=== PATIENT | male | born 1955 ===

== ENCOUNTER 2019-07-26 11:16 | Inpatient (IN) ==
[2019-07-26] MEDS ORDERED: SODIUM CHLORIDE 0.9% 1,000 ML IV ONE ×2 (13:44→15:37)
[2019-07-26] MEDS ORDERED: CALCIUM GLUCONATE 1,000 MG/10 ML VIAL IV ONE (13:45)
[2019-07-26] MEDS ORDERED: NOREPINEPHRINE 4 MG/4 ML VIAL IV ONE (13:49)
[2019-07-26] MEDS: NOREPINEPHRINE 8 MG in SODIUM CHLORIDE 0.9% 242 ML IV PRN ×2 (13:55→23:30)
[2019-07-26] MEDS ORDERED: CALCIUM GLUCONATE 2,000 MG in SODIUM CHLORIDE 0.9% 100 ML IV ONE ×3 (14:00→20:35)
[2019-07-26 14:11] LABS: ABG Base Excess -21.1 MMOL/L (-2.5-2.5); ABG HCO3 10.1 MMOL/L (20-26); ABG Oxygen Saturation 97.6 % (95-100); ABG TCO2 14.3 MMOL/L (23-27); Allen Test Positive; Pt O2 Delivery Device Ventilator
[2019-07-26 14:13] LABS: ABG PH 6.931 (7.35-7.45)
[2019-07-26 14:14] LABS: ABG PCO2 70.7 MM HG (35-48)
[2019-07-26] MEDS: DOPamine 800 MG/250 ML PREMIX IV PRN (14:15)
[2019-07-26] MEDS ORDERED: SODIUM BICARBONATE 50 MEQ/50 ML VIAL IV ONE ×5 (14:17→18:32)
[2019-07-26] MEDS ORDERED: OCTREOTIDE 100 MCG/ML SYRINGE IV ONE (14:28)
[2019-07-26] MEDS: OCTREOTIDE 500 MCG in SODIUM CHLORIDE 0.9% 100 ML IV SCH ×2 (14:50→22:22)
[2019-07-26 15:05] LABS: Basophils % 0.1 % (0.0-0.8); Eosinophils % 0.3 % (0.00-10.9); Hematocrit 42.9 VOL% (42.0-52.0); Hemoglobin 13.7 GM/DL (14.0-18.0); Immature Granulocytes % 1.1 %; Immature Granulocytes Absolute 0.08 #; Lymphocytes # 1.5 10*3/uL (1.4-4.0); Lymphocytes % 21.9 % (21.2-54.2); Mean Corpuscular HGB Conc 31.9 GM/DL (32-36); Mean Corpuscular Volume 92.3 FL (87-102); Mean Platelet Volume 11.5 FL (9.6-12.0); Monocytes % 4.8 % (1.7-12.7); NRBC # 0.25 10*3/uL; Neutrophils % 71.8 % (38.7-73.9); Platelet Count 45 T/CUMM (130-400); Red Blood Count 4.65 MC/CUMM (3.8-5.5); Red Cell Distribution Width 14.7 % (9.3-17.3)
[2019-07-26] MEDS ORDERED: methylPREDNISolone SOD SUC 125 MG/2 ML VIAL IV ONE (15:21)
[2019-07-26] MEDS ORDERED: VECURONIUM 10 MG VIAL IV ONE ×2 (15:24→15:25)
[2019-07-26] MEDS ORDERED: PANTOPRAZOLE INJ 80 MG in SODIUM CHLORIDE 0.9% 100 ML IV ONE (15:28)
[2019-07-26 15:30] LABS: Blood Urea Nitrogen 17 MG/DL (7-18); CKMB % 4.4 %; Estimated Glom Filtration Rate 25 ML/MIN; Glucose 280 MG/DL (74-106); Osmolality,Calculated 292.3 MOS/KG (273-304)
[2019-07-26 15:31] LABS: Troponin I 0.276 NG/ML (0.00-0.045)
[2019-07-26 15:35] LABS: Calcium 5.1 MG/DL (8.5-10.1)
[2019-07-26] MEDS ORDERED: INSULIN REGULAR 100 UNIT/ML IV ONE ×2 (15:37→19:41)
[2019-07-26] MEDS ORDERED: ALBUMIN 25% 50 GM in PREMIX 1 EACH IV ONE (15:37)
[2019-07-26] MEDS ORDERED: ALBUMIN 5% 12.5 GM/250 ML VIAL IV ONE (15:38)
[2019-07-26] MEDS ORDERED: INSULIN REGULAR 100 UNIT/ML ONE (15:39)
[2019-07-26] MEDS ORDERED: DEXTROSE 10% 25 GM/250 ML BAG IV ONE (15:42)
[2019-07-26] MEDS: ALBUTEROL 2.5 MG/3 ML NEB RESP TX SCH ×2 (16:08→16:34)
[2019-07-26 16:10] LABS: ABG Base Excess -8.6 MMOL/L (-2.5-2.5); ABG HCO3 22.8 MMOL/L (20-26); ABG Oxygen Saturation 99.5 % (95-100); ABG PO2 430.9 MM HG (80-95); ABG TCO2 25.2 MMOL/L (23-27); Pt O2 Delivery Device Ventilator
[2019-07-26 16:40] LABS: ABG PCO2 77.7 MM HG (35-48); ABG PH 7.085 (7.35-7.45)
[2019-07-26] MEDS: PANTOPRAZOLE INJ 200 MG in SODIUM CHLORIDE 0.9% 250 ML IV SCH (16:45)
[2019-07-26] MEDS: PIPERACILLIN/TAZOBACTAM 3,375 MG in SODIUM CHLORIDE 0.9% 100 ML IV SCH (17:05)
[2019-07-26 17:26] LABS: ABG Base Excess -9.2 MMOL/L (-2.5-2.5); ABG HCO3 17.2 MMOL/L (20-26); ABG Oxygen Saturation 99.3 % (95-100); ABG TCO2 23.2 MMOL/L (23-27); Glucose Heart Surgery 354 MG/DL (74-106); Hematocrit Heart Surgery 42.6 PERCENT (42-52); Hemoglobin Heart Surgery 13.9 G/DL (14.0-18.0); Potassium Heart/CVR 5.8 MMOL/L (3.5-5.1)
[2019-07-26 17:29] LABS: ABG PCO2 88.5 MM HG (35-48); ABG PH 7.057 (7.35-7.45)
[2019-07-26] MEDS ORDERED: SODIUM CHLORIDE 0.9% 1,000 ML IV PRN (18:17)
[2019-07-26 18:23] LABS: Band Neutrophils 7 % (0-10); Burr Cells 2+; Eosinophils 1 % (0-10); Lymphocytes 12 % (20-55); Metamyelocytes 3 %; Nucleated Red Blood Cells 5 (0-5); Segmented Neutrophils 74 % (50-85); Total Cells Counted 100
[2019-07-26 18:24] LABS: Anisocytosis 2+; Hypochromasia Slight; Macrocytosis Slight; Platelet Estimate Decreased; Poikilocytosis 2+; Polychromasia 1+
[2019-07-26] MEDS ORDERED: fentaNYL 100 MCG/2 ML VIAL ONE (18:32)
[2019-07-26] MEDS ORDERED: CALCIUM CHLORIDE 1,000 MG/10 ML VIAL IV ONE (18:32)
[2019-07-26] MEDS ORDERED: SEVOFLURANE 1 UNIT/15 MINUTE INH ONE (18:32)
[2019-07-26] MEDS ORDERED: MIDAZOLAM 2 MG/2 ML VIAL ONE (18:32)
[2019-07-26] MEDS ORDERED: SODIUM CHLORIDE 0.9% 100 ML IV ONE (18:33)
[2019-07-26] MEDS ORDERED: PHENYLEPHRINE 10 MG/1 ML VIAL IV ONE (18:33)
[2019-07-26] MEDS ORDERED: PHENYLEPHRINE 1 MG/10 ML SYRINGE IV ONE (18:33)
[2019-07-26] MEDS ORDERED: ROCURONIUM 100 MG/10 ML VIAL IV ONE (18:33)
[2019-07-26 18:47] LABS: INR 1.7; PT Patient Result 18.7 SECS (9.6-12.2)
[2019-07-26 18:56] LABS: Partial Thromboplastin Time 53.2 SECS (20.8-36.0)
[2019-07-26 19:15] LABS: ABG Base Excess 1.6 MMOL/L (-2.5-2.5); ABG HCO3 25.9 MMOL/L (20-26); ABG Oxygen Saturation 99.8 % (95-100); ABG PCO2 67.8 MM HG (35-48); ABG PH 7.268 (7.35-7.45); ABG TCO2 27.4 MMOL/L (23-27); Glucose Heart Surgery 347 MG/DL (74-106); Hematocrit Heart Surgery 41.6 PERCENT (42-52); Hemoglobin Heart Surgery 13.6 G/DL (14.0-18.0); Potassium Heart/CVR 5.1 MMOL/L (3.5-5.1)
[2019-07-26 19:36] LABS: INR 1.9; PT Patient Result 20.4 SECS (9.6-12.2)
[2019-07-26] MEDS: ALBUTEROL/IPRATROPIUM 3 ML NEB RESP TX SCH ×2 (20:10→23:05)
[2019-07-26] MEDS: SODIUM BICARB INJ 150 MEQ in STERILE WATER INJ 1,000 ML IV SCH (20:19)
[2019-07-26 20:22] LABS: Hepatitis B Core IgM Quant < 0.05 Index; Hepatitis B Surface Ag Quant 0.14 Index; Hepatitis B Surface Ag Result Negative (Negative); Hepatitis C Virus Ab Quant 0.11 Index; Hepatitis C Virus Ab Result Negative (Negative)
[2019-07-26 20:45] LABS: ABG Base Excess -6.5 MMOL/L (-2.5-2.5); ABG HCO3 19.2 MMOL/L (20-26); ABG Oxygen Saturation 99.6 % (95-100); ABG PCO2 63.9 MM HG (35-48); ABG TCO2 21.2 MMOL/L (23-27); Glucose Heart Surgery 288 MG/DL (74-106); Hematocrit Heart Surgery 44.9 PERCENT (42-52); Hemoglobin Heart Surgery 14.6 G/DL (14.0-18.0); Potassium Heart/CVR 4.9 MMOL/L (3.5-5.1)
[2019-07-26 20:46] LABS: ABG PH 7.181 (7.35-7.45)
[2019-07-26 20:50] LABS: Basophils % 0.2 % (0.0-0.8); Eosinophils # 0.8 10*3/uL (0.0-0.87); Eosinophils % 17.3 % (0.00-10.9); Hematocrit 43.9 VOL% (42.0-52.0); Hemoglobin 14.4 GM/DL (14.0-18.0); Immature Granulocytes % 1.9 %; Immature Granulocytes Absolute 0.09 #; Lymphocytes # 0.8 10*3/uL (1.4-4.0); Lymphocytes % 16.7 % (21.2-54.2); Mean Corpuscular HGB Conc 32.8 GM/DL (32-36); Mean Corpuscular Volume 90.9 FL (87-102); Mean Platelet Volume 11.5 FL (9.6-12.0); Monocytes % 4.1 % (1.7-12.7); NRBC # 0.13 10*3/uL; Neutrophils % 59.8 % (38.7-73.9); Platelet Count 54 T/CUMM (130-400); Red Blood Count 4.83 MC/CUMM (3.8-5.5); Red Cell Distribution Width 15.5 % (9.3-17.3); White Blood Count 4.9 T/CUMM (4-12)
[2019-07-26 20:53] LABS: INR 1.5; PT Patient Result 16.7 SECS (9.6-12.2)
[2019-07-26 21:03] LABS: Partial Thromboplastin Time 46.7 SECS (20.8-36.0)
[2019-07-26 21:22] LABS: Bilirubin,Total 7.2 MG/DL (0.2-1.0); Calcium 6.6 MG/DL (8.5-10.1); Osmolality,Calculated 291.1 MOS/KG (273-304); Total Protein 5.3 G/DL (6.4-8.3)
[2019-07-26 21:52] LABS: Band Neutrophils 10 % (0-10); Lymphocytes 12 % (20-55); Metamyelocytes 2 %; Nucleated Red Blood Cells 3 (0-5); Platelet Estimate Decreased; Segmented Neutrophils 75 % (50-85); Total Cells Counted 100
[2019-07-26 21:53] LABS: Anisocytosis Slight
[2019-07-26] MEDS: INSULIN REGULAR 100 UNIT/ML IV SCH ×2 (21:58→23:48)
[2019-07-26 22:01] LABS: Polychromasia Few
[2019-07-26 22:05] LABS: Stomatocytes Few; Target Cells Few
[2019-07-26 22:06] LABS: Hypochromasia Slight
[2019-07-26] MEDS: AZITHROMYCIN INJ 500 MG in SODIUM CHLORIDE 0.9% 250 ML IV SCH (22:22)
[2019-07-26] MEDS: methylPREDNISolone SOD SUC 125 MG/2 ML VIAL IV SCH (23:11)
[2019-07-26 23:39] LABS: ABG Base Excess -0.7 MMOL/L (-2.5-2.5); ABG HCO3 23.9 MMOL/L (20-26); ABG Oxygen Saturation 99.8 % (95-100); ABG PCO2 53.7 MM HG (35-48); ABG PH 7.304 (7.35-7.45); ABG TCO2 23.9 MMOL/L (23-27); Glucose Heart Surgery 254 MG/DL (74-106); Hematocrit Heart Surgery 37.4 PERCENT (42-52); Hemoglobin Heart Surgery 12.1 G/DL (14.0-18.0); Potassium Heart/CVR 4.6 MMOL/L (3.5-5.1)
[2019-07-26 23:42] LABS: Basophils % 0.3 % (0.0-0.8); Eosinophils # 0.6 10*3/uL (0.0-0.87); Eosinophils % 15.3 % (0.00-10.9); Hematocrit 34.6 VOL% (42.0-52.0); Hemoglobin 11.4 GM/DL (14.0-18.0); Immature Granulocytes % 1.5 %; Immature Granulocytes Absolute 0.06 #; Lymphocytes # 0.5 10*3/uL (1.4-4.0); Mean Corpuscular HGB Conc 32.9 GM/DL (32-36); Mean Corpuscular Volume 90.6 FL (87-102); Mean Platelet Volume 10.8 FL (9.6-12.0); NRBC # 0.14 10*3/uL; Neutrophils % 61.9 % (38.7-73.9); Platelet Count 115 T/CUMM (130-400); Red Blood Count 3.82 MC/CUMM (3.8-5.5); Red Cell Distribution Width 15.9 % (9.3-17.3)
[2019-07-26 23:55] LABS: INR 1.5; PT Patient Result 16.4 SECS (9.6-12.2)
[2019-07-27 00:04] LABS: Partial Thromboplastin Time 69.3 SECS (20.8-36.0)
[2019-07-27 00:16] LABS: Albumin 2.4 G/DL (3.4-5.0); Total Protein 4.3 G/DL (6.4-8.3)
[2019-07-27 00:24] LABS: Calcium 5.3 MG/DL (8.5-10.1)
[2019-07-27 00:28] LABS: Band Neutrophils 21 % (0-10); Lymphocytes 5 % (20-55); Metamyelocytes 3 %; Myelocytes 1 %; Nucleated Red Blood Cells 11 (0-5); Segmented Neutrophils 66 % (50-85); Total Cells Counted 100
[2019-07-27 00:29] LABS: Platelet Estimate Adequate; Polychromasia Few; Target Cells Few
[2019-07-27 00:30] LABS: Anisocytosis Slight; Microcytosis Slight; Stomatocytes Slight
[2019-07-27] MEDS ORDERED: CALCIUM GLUCONATE 1,000 MG in SODIUM CHLORIDE 0.9% 100 ML IV ONE (00:42)
[2019-07-27] MEDS: PIPERACILLIN/TAZOBACTAM 3,375 MG in SODIUM CHLORIDE 0.9% 100 ML IV SCH ×4 (00:53→23:59)
[2019-07-27] MEDS: OCTREOTIDE 500 MCG in SODIUM CHLORIDE 0.9% 100 ML IV SCH ×4 (00:54→20:42)
[2019-07-27] MEDS: SODIUM BICARB INJ 150 MEQ in STERILE WATER INJ 1,000 ML IV SCH ×4 (02:20→20:22)
[2019-07-27 02:42] LABS: ABG Base Excess -0.1 MMOL/L (-2.5-2.5); ABG HCO3 24.4 MMOL/L (20-26); ABG Oxygen Saturation 99.8 % (95-100); ABG PH 7.281 (7.35-7.45); ABG TCO2 25.3 MMOL/L (23-27); Glucose Heart Surgery 281 MG/DL (74-106); Hematocrit Heart Surgery 33.7 PERCENT (42-52); Hemoglobin Heart Surgery 10.9 G/DL (14.0-18.0); Potassium Heart/CVR 5.2 MMOL/L (3.5-5.1)
[2019-07-27] MEDS: ALBUTEROL/IPRATROPIUM 3 ML NEB RESP TX SCH ×5 (02:46→20:46)
[2019-07-27] MEDS: DOPamine 800 MG/250 ML PREMIX IV PRN (02:53)
[2019-07-27 02:57] LABS: Hematocrit 31.3 VOL% (42.0-52.0); Hemoglobin 10.3 GM/DL (14.0-18.0); Immature Granulocytes % 1.9 %; Immature Granulocytes Absolute 0.07 #; Lymphocytes # 0.3 10*3/uL (1.4-4.0); Lymphocytes % 8.5 % (21.2-54.2); Mean Corpuscular HGB Conc 32.9 GM/DL (32-36); Mean Platelet Volume 9.9 FL (9.6-12.0); Monocytes % 8.7 % (1.7-12.7); NRBC # 0.12 10*3/uL; Neutrophils % 80.9 % (38.7-73.9); Platelet Count 160 T/CUMM (130-400); Red Blood Count 3.44 MC/CUMM (3.8-5.5); Red Cell Distribution Width 16.3 % (9.3-17.3); White Blood Count 3.8 T/CUMM (4-12)
[2019-07-27 03:04] LABS: INR 1.3; PT Patient Result 14.3 SECS (9.6-12.2); Partial Thromboplastin Time 37.2 SECS (20.8-36.0)
[2019-07-27 03:25] LABS: Alanine Aminotransferase 404 U/L (16-61); Albumin 2.1 G/DL (3.4-5.0); Alkaline Phosphatase 69 U/L (45-117); Aspartate Amino Transferase 2226 U/L (0-37); Blood Urea Nitrogen 17 MG/DL (7-18); Estimated Glom Filtration Rate 20 ML/MIN; Glucose 252 MG/DL (74-106); Osmolality,Calculated 296.8 MOS/KG (273-304); Total Protein 4.2 G/DL (6.4-8.3)
[2019-07-27 03:28] LABS: Band Neutrophils 24 % (0-10); Lymphocytes 15 % (20-55); Metamyelocytes 1 %; Myelocytes 2 %; Nucleated Red Blood Cells 5 (0-5); Segmented Neutrophils 56 % (50-85); Total Cells Counted 100
[2019-07-27 03:29] LABS: Calcium < 5.0 MG/DL (8.5-10.1); Platelet Estimate Normal; Stomatocytes Slight; Target Cells Few
[2019-07-27 03:30] LABS: Microcytosis Slight
[2019-07-27] MEDS ORDERED: CALCIUM GLUCONATE 2,000 MG in SODIUM CHLORIDE 0.9% 100 ML IV ONE ×2 (03:36→22:02)
[2019-07-27] MEDS: methylPREDNISolone SOD SUC 125 MG/2 ML VIAL IV SCH ×4 (03:44→21:28)
[2019-07-27] MEDS: INSULIN REGULAR 100 UNIT/ML IV SCH ×5 (04:22→21:27)
[2019-07-27] MEDS ORDERED: HEPARIN 10,000 UNIT/10 ML VIAL IV SCH (07:00)
[2019-07-27 07:02] LABS: ABG Base Excess -0.7 MMOL/L (-2.5-2.5); ABG HCO3 26.6 MMOL/L (20-26); ABG Oxygen Saturation 99.3 % (95-100); ABG PH 7.279 (7.35-7.45); ABG PO2 360.7 MM HG (80-95); ABG TCO2 28.4 MMOL/L (23-27); Glucose Heart Surgery 289 MG/DL (74-106); Hemoglobin Heart Surgery 9.9 G/DL (14.0-18.0); Potassium Heart/CVR 4.8 MMOL/L (3.5-5.1)
[2019-07-27 07:14] LABS: Basophils % 0.2 % (0.0-0.8); Hematocrit 29.5 VOL% (42.0-52.0); Hemoglobin 9.7 GM/DL (14.0-18.0); Immature Granulocytes % 2.2 %; Immature Granulocytes Absolute 0.09 #; Lymphocytes # 0.3 10*3/uL (1.4-4.0); Lymphocytes % 7.2 % (21.2-54.2); Mean Corpuscular HGB Conc 32.9 GM/DL (32-36); Mean Platelet Volume 10.5 FL (9.6-12.0); Monocytes % 7.9 % (1.7-12.7); NRBC # 0.11 10*3/uL; Neutrophils % 82.5 % (38.7-73.9); Platelet Count 140 T/CUMM (130-400); Red Blood Count 3.24 MC/CUMM (3.8-5.5); Red Cell Distribution Width 16.6 % (9.3-17.3)
[2019-07-27 07:21] LABS: INR 1.3; PT Patient Result 14.1 SECS (9.6-12.2)
[2019-07-27 07:58] LABS: Alanine Aminotransferase 431 U/L (16-61); Albumin 1.7 G/DL (3.4-5.0); Alkaline Phosphatase 55 U/L (45-117); Aspartate Amino Transferase 2892 U/L (0-37); Blood Urea Nitrogen 21 MG/DL (7-18); Estimated Glom Filtration Rate 17 ML/MIN; Glucose 282 MG/DL (74-106); Osmolality,Calculated 293.3 MOS/KG (273-304); Total Protein 3.8 G/DL (6.4-8.3)
[2019-07-27 08:02] LABS: Calcium < 5.0 MG/DL (8.5-10.1)
[2019-07-27] MEDS ORDERED: MAGNESIUM SULF RIDER 2 GM in PREMIX 1 EACH IV ONE (08:07)
[2019-07-27] MEDS: ALBUMIN 25% 25 GM in PREMIX 1 EACH IV SCH ×2 (08:34→21:32)
[2019-07-27 08:53] LABS: ABG Base Excess -1.2 MMOL/L (-2.5-2.5); ABG HCO3 23.4 MMOL/L (20-26); ABG Oxygen Saturation 99.3 % (95-100); ABG PH 7.268 (7.35-7.45); ABG TCO2 24.6 MMOL/L (23-27)
[2019-07-27] MEDS: CALCIUM GLUCONATE 1,000 MG in SODIUM CHLORIDE 0.9% 100 ML IV SCH ×2 (10:13→21:33)
[2019-07-27 10:14] LABS: ABG Base Excess 0.1 MMOL/L (-2.5-2.5); ABG HCO3 24.5 MMOL/L (20-26); ABG Oxygen Saturation 96.6 % (95-100); ABG PCO2 56.7 MM HG (35-48); ABG PH 7.291 (7.35-7.45); ABG TCO2 25.6 MMOL/L (23-27)
[2019-07-27 10:59] LABS: Band Neutrophils 13 % (0-10); Lymphocytes 8 % (20-55); Metamyelocytes 9 %; Myelocytes 5 %; Nucleated Red Blood Cells 1 (0-5); Segmented Neutrophils 58 % (50-85); Total Cells Counted 100
[2019-07-27 11:08] LABS: Platelet Estimate Adequate; Polychromasia Slight; Stomatocytes Few
[2019-07-27] MEDS ORDERED: ALBUMIN 25% 25 GM in PREMIX 1 EACH IV ONE ×2 (12:12→14:00)
[2019-07-27] MEDS: MIDAZOLAM 100 MG in SODIUM CHLORIDE 0.9% 80 ML IV PRN (16:00)
[2019-07-27] MEDS: PANTOPRAZOLE INJ 200 MG in SODIUM CHLORIDE 0.9% 250 ML IV SCH (16:15)
[2019-07-27] MEDS: NOREPINEPHRINE 8 MG in SODIUM CHLORIDE 0.9% 242 ML IV PRN (16:21)
[2019-07-27] MEDS: AZITHROMYCIN INJ 500 MG in SODIUM CHLORIDE 0.9% 250 ML IV SCH (16:30)
[2019-07-27 20:34] LABS: ABG Base Excess 1.2 MMOL/L (-2.5-2.5); ABG HCO3 27.7 MMOL/L (20-26); ABG Oxygen Saturation 96.9 % (95-100); ABG PCO2 56.9 MM HG (35-48); ABG PH 7.306 (7.35-7.45); ABG PO2 94.2 MM HG (80-95); ABG TCO2 29.5 MMOL/L (23-27)
[2019-07-27 20:37] LABS: Basophils % 0.4 % (0.0-0.8); Eosinophils % 0.2 % (0.00-10.9); Hematocrit 20.5 VOL% (42.0-52.0); Hemoglobin 6.6 GM/DL (14.0-18.0); Immature Granulocytes % 0.4 %; Immature Granulocytes Absolute 0.02 #; Lymphocytes # 0.4 10*3/uL (1.4-4.0); Mean Corpuscular HGB Conc 32.2 GM/DL (32-36); Mean Corpuscular Volume 91.9 FL (87-102); Mean Platelet Volume 10.8 FL (9.6-12.0); Monocytes % 5.1 % (1.7-12.7); NRBC # 0.29 10*3/uL; Neutrophils % 84.9 % (38.7-73.9); Platelet Count 64 T/CUMM (130-400); Red Blood Count 2.23 MC/CUMM (3.8-5.5); Red Cell Distribution Width 16.9 % (9.3-17.3); White Blood Count 4.7 T/CUMM (4-12)
[2019-07-27 20:44] LABS: INR 1.5
[2019-07-27] MEDS: BUDESONIDE 0.5 MG/2 ML NEB RESP TX SCH (20:46)
[2019-07-27 21:06] LABS: Band Neutrophils 20 % (0-10); Lymphocytes 13 % (20-55); Metamyelocytes 4 %; Myelocytes 3 %; Nucleated Red Blood Cells 10 (0-5); Segmented Neutrophils 51 % (50-85); Total Cells Counted 100
[2019-07-27 21:10] LABS: Anisocytosis Slight; Burr Cells Few
[2019-07-27 21:11] LABS: Hypochromasia 1+; Platelet Estimate Decreased; Stomatocytes Few; Target Cells Few
[2019-07-27 21:12] LABS: Polychromasia Slight
[2019-07-27 21:25] LABS: Alanine Aminotransferase 530 U/L (16-61); Alkaline Phosphatase 60 U/L (45-117)
[2019-07-27 21:26] LABS: Albumin 2.4 G/DL (3.4-5.0); Blood Urea Nitrogen 20 MG/DL (7-18); Estimated Glom Filtration Rate 19 ML/MIN; Glucose 208 MG/DL (74-106); Osmolality,Calculated 283.7 MOS/KG (273-304)
[2019-07-27] MEDS: MAGNESIUM SULF RIDER 2 GM in PREMIX 1 EACH IV PRN (21:28)
[2019-07-27] MEDS: MINERAL OIL/PETROLATUM OPH OINT 3.5 GM TUBE BOTH EYES SCH (21:28)
[2019-07-27 21:31] LABS: Calcium < 5.0 MG/DL (8.5-10.1)
[2019-07-27 21:37] LABS: Aspartate Amino Transferase 3716 U/L (0-37)
[2019-07-28] MEDS: ALBUTEROL/IPRATROPIUM 3 ML NEB RESP TX SCH ×8 (00:13→20:45)
[2019-07-28] MEDS: NOREPINEPHRINE 8 MG in SODIUM CHLORIDE 0.9% 242 ML IV PRN ×4 (00:14→21:27)
[2019-07-28] MEDS: SODIUM BICARB INJ 150 MEQ in STERILE WATER INJ 1,000 ML IV SCH ×2 (01:39→09:30)
[2019-07-28] MEDS: methylPREDNISolone SOD SUC 125 MG/2 ML VIAL IV SCH ×2 (04:02→09:07)
[2019-07-28] MEDS: INSULIN REGULAR 100 UNIT/ML IV SCH ×4 (04:02→12:13)
[2019-07-28 04:19] LABS: ABG Base Excess 2.3 MMOL/L (-2.5-2.5); ABG HCO3 28.4 MMOL/L (20-26); ABG Oxygen Saturation 97.2 % (95-100); ABG PCO2 52.7 MM HG (35-48); ABG PO2 100.8 MM HG (80-95); ABG TCO2 30.1 MMOL/L (23-27)
[2019-07-28 05:27] LABS: INR 1.5; PT Patient Result 15.8 SECS (9.6-12.2)
[2019-07-28 06:08] LABS: Troponin I 0.849 NG/ML (0.00-0.045)
[2019-07-28 06:27] LABS: Alanine Aminotransferase 526 U/L (16-61); Albumin 2.3 G/DL (3.4-5.0); Alkaline Phosphatase 82 U/L (45-117); Aspartate Amino Transferase 3539 U/L (0-37); Blood Urea Nitrogen 28 MG/DL (7-18); Estimated Glom Filtration Rate 16 ML/MIN; Glucose 320 MG/DL (74-106); Osmolality,Calculated 290.8 MOS/KG (273-304)
[2019-07-28 06:28] LABS: Calcium < 5.0 MG/DL (8.5-10.1)
[2019-07-28] MEDS: OCTREOTIDE 500 MCG in SODIUM CHLORIDE 0.9% 100 ML IV SCH (06:31)
[2019-07-28] MEDS: BUDESONIDE 0.5 MG/2 ML NEB RESP TX SCH ×2 (07:10→20:45)
[2019-07-28 07:36] LABS: Basophils % 0.4 % (0.0-0.8); Hematocrit 24.4 VOL% (42.0-52.0); Hemoglobin 8.1 GM/DL (14.0-18.0); Immature Granulocytes Absolute 0.05 #; Lymphocytes # 0.3 10*3/uL (1.4-4.0); Lymphocytes % 6.5 % (21.2-54.2); Mean Corpuscular HGB Conc 33.2 GM/DL (32-36); Mean Corpuscular Volume 91.4 FL (87-102); Mean Platelet Volume 11.1 FL (9.6-12.0); Monocytes % 6.9 % (1.7-12.7); NRBC # 0.52 10*3/uL; Neutrophils % 85.2 % (38.7-73.9); Red Blood Count 2.67 MC/CUMM (3.8-5.5); Red Cell Distribution Width 15.7 % (9.3-17.3); White Blood Count 5.2 T/CUMM (4-12)
[2019-07-28 07:47] LABS: Platelet Count 39 T/CUMM (130-400)
[2019-07-28] MEDS ORDERED: SODIUM CHLORIDE 0.9% 1,000 ML IV PRN ×2 (08:09→08:12)
[2019-07-28] MEDS ORDERED: PHYTONADIONE 10 MG/1 ML AMP SUBCUT ONE (08:15)
[2019-07-28] MEDS ORDERED: DEXTROSE 5% NACL 0.45% 1,000 ML IV SCH (09:00)
[2019-07-28] MEDS: CALCIUM GLUCONATE 1,000 MG in SODIUM CHLORIDE 0.9% 100 ML IV SCH (09:06)
[2019-07-28] MEDS: PIPERACILLIN/TAZOBACTAM 3,375 MG in SODIUM CHLORIDE 0.9% 100 ML IV SCH ×2 (09:06→16:18)
[2019-07-28] MEDS: ALBUMIN 25% 25 GM in PREMIX 1 EACH IV SCH ×2 (09:08→20:22)
[2019-07-28 09:10] LABS: Band Neutrophils 35 % (0-10); Lymphocytes 15 % (20-55); Metamyelocytes 6 %; Myelocytes 3 %; Segmented Neutrophils 25 % (50-85); Total Cells Counted 100
[2019-07-28 09:11] LABS: Anisocytosis 1+; Basophilic Stippling 1+; Nucleated Red Blood Cells 19 (0-5); Platelet Estimate Decreased; Smudge Cells Few
[2019-07-28 09:12] LABS: Macrocytosis Slight
[2019-07-28] MEDS ORDERED: DIGOXIN 0.5 MG/2 ML AMP IV ONE ×2 (09:36→12:36)
[2019-07-28] MEDS ORDERED: CALCIUM GLUCONATE 2,000 MG in SODIUM CHLORIDE 0.9% 100 ML IV ONE ×2 (11:00→15:00)
[2019-07-28] MEDS: SODIUM CHLORIDE 0.45% 1,000 ML IV SCH ×2 (12:23→18:17)
[2019-07-28] MEDS: CALCIUM GLUCONATE 2,000 MG in SODIUM CHLORIDE 0.9% 100 ML IV SCH ×3 (14:02→22:06)
[2019-07-28] MEDS: INSULIN REGULAR DRIP 100 ML IV PRN ×2 (15:02→20:32)
[2019-07-28] MEDS: PANTOPRAZOLE INJ 200 MG in SODIUM CHLORIDE 0.9% 250 ML IV SCH (15:38)
[2019-07-28] MEDS: INSULIN REGULAR 100 UNIT/ML IV PRN (16:00)
[2019-07-28] MEDS: AZITHROMYCIN INJ 500 MG in SODIUM CHLORIDE 0.9% 250 ML IV SCH (17:30)
[2019-07-28] MEDS ORDERED: AMIODARONE 450 MG/9 ML VIAL IV ONE (17:39)
[2019-07-28] MEDS: AMIODARONE INJ 450 MG in DEXTROSE 5% 241 ML IV SCH (17:44)
[2019-07-28] MEDS: MIDAZOLAM 100 MG in SODIUM CHLORIDE 0.9% 80 ML IV PRN (19:13)
[2019-07-28] MEDS: methylPREDNISolone SOD SUC 40 MG/1 ML VIAL IV SCH (20:22)
[2019-07-28] MEDS: MINERAL OIL/PETROLATUM OPH OINT 3.5 GM TUBE BOTH EYES SCH (20:23)
[2019-07-28 20:32] LABS: Basophils # 0.1 10*3/uL (0.0-0.2); Hematocrit 22.3 VOL% (42.0-52.0); Hemoglobin 7.7 GM/DL (14.0-18.0); Immature Granulocytes % 1.3 %; Immature Granulocytes Absolute 0.08 #; Lymphocytes # 0.5 10*3/uL (1.4-4.0); Lymphocytes % 8.2 % (21.2-54.2); Mean Corpuscular HGB Conc 34.5 GM/DL (32-36); Mean Corpuscular Volume 87.8 FL (87-102); Mean Platelet Volume 10.2 FL (9.6-12.0); Monocytes % 12.8 % (1.7-12.7); NRBC # 1.31 10*3/uL; Neutrophils % 76.7 % (38.7-73.9); Platelet Count 63 T/CUMM (130-400); Red Blood Count 2.54 MC/CUMM (3.8-5.5); Red Cell Distribution Width 15.5 % (9.3-17.3)
[2019-07-28 21:35] LABS: Band Neutrophils 20 % (0-10); Lymphocytes 27 % (20-55); Metamyelocytes 6 %; Myelocytes 3 %; Nucleated Red Blood Cells 29 (0-5); Segmented Neutrophils 36 % (50-85); Total Cells Counted 100
[2019-07-28 21:37] LABS: Basophilic Stippling Slight; Platelet Estimate Decreased; Polychromasia Slight
[2019-07-28 21:38] LABS: Stomatocytes Slight
[2019-07-28 21:39] LABS: Macrocytosis Slight
[2019-07-29] MEDS: ALBUTEROL/IPRATROPIUM 3 ML NEB RESP TX SCH ×6 (00:12→20:33)
[2019-07-29] MEDS: SODIUM CHLORIDE 0.45% 1,000 ML IV SCH ×4 (00:59→21:18)
[2019-07-29] MEDS: PIPERACILLIN/TAZOBACTAM 3,375 MG in SODIUM CHLORIDE 0.9% 100 ML IV SCH ×3 (01:01→16:50)
[2019-07-29] MEDS: CALCIUM GLUCONATE 2,000 MG in SODIUM CHLORIDE 0.9% 100 ML IV SCH ×6 (01:03→21:19)
[2019-07-29] MEDS: NOREPINEPHRINE 8 MG in SODIUM CHLORIDE 0.9% 242 ML IV PRN ×3 (02:24→13:55)
[2019-07-29 05:00] LABS: ABG Base Excess -1.9 MMOL/L (-2.5-2.5); ABG HCO3 22.8 MMOL/L (20-26); ABG Oxygen Saturation 98.3 % (95-100); ABG PH 7.297 (7.35-7.45); ABG TCO2 23.1 MMOL/L (23-27)
[2019-07-29 05:06] LABS: Basophils % 0.1 % (0.0-0.8); Eosinophils # 0.7 10*3/uL (0.0-0.87); Hematocrit 26.9 VOL% (42.0-52.0); Hemoglobin 9.2 GM/DL (14.0-18.0); Immature Granulocytes % 1.2 %; Immature Granulocytes Absolute 0.09 #; Lymphocytes # 0.6 10*3/uL (1.4-4.0); Lymphocytes % 7.7 % (21.2-54.2); Mean Corpuscular HGB Conc 34.2 GM/DL (32-36); Mean Corpuscular Volume 87.6 FL (87-102); Monocytes % 11.2 % (1.7-12.7); NRBC # 1.77 10*3/uL; Neutrophils % 70.8 % (38.7-73.9); Red Blood Count 3.07 MC/CUMM (3.8-5.5); Red Cell Distribution Width 14.9 % (9.3-17.3); White Blood Count 7.7 T/CUMM (4-12)
[2019-07-29 05:09] LABS: Platelet Count 32 T/CUMM (130-400)
[2019-07-29 05:28] LABS: Band Neutrophils 5 % (0-10); Lymphocytes 9 % (20-55); Nucleated Red Blood Cells 19 (0-5); Segmented Neutrophils 76 % (50-85); Total Cells Counted 100
[2019-07-29 05:29] LABS: Hypochromasia 1+; Platelet Estimate Decreased
[2019-07-29 05:30] LABS: Ovalocytes Slight
[2019-07-29] MEDS: INSULIN REGULAR 100 UNIT/ML IV PRN ×3 (05:31→20:30)
[2019-07-29] MEDS: MAGNESIUM SULF RIDER 2 GM in PREMIX 1 EACH IV PRN (05:35)
[2019-07-29 06:32] LABS: Alanine Aminotransferase 359 U/L (16-61); Alkaline Phosphatase 236 U/L (45-117); Aspartate Amino Transferase 2117 U/L (0-37); Calcium < 5.0 MG/DL (8.5-10.1)
[2019-07-29 06:33] LABS: Blood Urea Nitrogen 55 MG/DL (7-18); Estimated Glom Filtration Rate 11 ML/MIN; Glucose 149 MG/DL (74-106); Osmolality,Calculated 283.4 MOS/KG (273-304); Total Protein 3.9 G/DL (6.4-8.3)
[2019-07-29] MEDS ORDERED: LIDOCAINE 1%/EPI INJ 20 ML VIAL ONE (06:42)
[2019-07-29] MEDS: BUDESONIDE 0.5 MG/2 ML NEB RESP TX SCH ×3 (08:35→20:33)
[2019-07-29] MEDS ORDERED: LIDOCAINE 2% 5 ML VIAL ONE (10:01)
[2019-07-29] MEDS ORDERED: CALCIUM CHLORIDE 1,000 MG/10 ML VIAL IV ONE ×2 (10:01→10:05)
[2019-07-29] MEDS ORDERED: fentaNYL 100 MCG/2 ML VIAL ONE (10:02)
[2019-07-29] MEDS ORDERED: SEVOFLURANE 1 UNIT/15 MINUTE INH ONE (10:02)
[2019-07-29] MEDS ORDERED: ALBUMIN 5% 12.5 GM/250 ML VIAL IV ONE (10:02)
[2019-07-29] MEDS ORDERED: MIDAZOLAM 2 MG/2 ML VIAL ONE (10:02)
[2019-07-29] MEDS ORDERED: ETOMIDATE 40 MG/20 ML VIAL IV ONE (10:03)
[2019-07-29] MEDS ORDERED: ePHEDrine 50 MG/ML AMP ONE (10:03)
[2019-07-29] MEDS ORDERED: ROCURONIUM 100 MG/10 ML VIAL IV ONE (10:04)
[2019-07-29] MEDS ORDERED: PHENYLEPHRINE 1 MG/10 ML SYRINGE IV ONE (10:04)
[2019-07-29] MEDS ORDERED: SODIUM CHLORIDE 0.9% 1,000 ML IV ONE (10:04)
[2019-07-29] MEDS ORDERED: PHENYLEPHRINE DRIP 20 MG/250 ML PREMIX IV ONE (10:05)
[2019-07-29] MEDS: AMIODARONE INJ 450 MG in DEXTROSE 5% 241 ML IV SCH (10:16)
[2019-07-29] MEDS: ALBUMIN 25% 25 GM in PREMIX 1 EACH IV SCH ×2 (10:19→21:18)
[2019-07-29] MEDS: methylPREDNISolone SOD SUC 40 MG/1 ML VIAL IV SCH ×2 (10:24→21:18)
[2019-07-29] MEDS: INSULIN REGULAR DRIP 100 ML IV PRN (14:27)
[2019-07-29] MEDS: AZITHROMYCIN INJ 500 MG in SODIUM CHLORIDE 0.9% 250 ML IV SCH (17:50)
[2019-07-29] MEDS: PANTOPRAZOLE INJ 200 MG in SODIUM CHLORIDE 0.9% 250 ML IV SCH (18:00)
[2019-07-29] MEDS: MINERAL OIL/PETROLATUM OPH OINT 3.5 GM TUBE BOTH EYES SCH (21:19)
[2019-07-30] MEDS: ALBUTEROL/IPRATROPIUM 3 ML NEB RESP TX SCH ×7 (00:17→23:18)
[2019-07-30] MEDS: MIDAZOLAM 100 MG in SODIUM CHLORIDE 0.9% 80 ML IV PRN (00:22)
[2019-07-30] MEDS: PIPERACILLIN/TAZOBACTAM 3,375 MG in SODIUM CHLORIDE 0.9% 100 ML IV SCH ×3 (01:37→17:13)
[2019-07-30] MEDS: CALCIUM GLUCONATE 2,000 MG in SODIUM CHLORIDE 0.9% 100 ML IV SCH ×5 (01:38→18:07)
[2019-07-30] MEDS ORDERED: NOREPINEPHRINE 4 MG/4 ML VIAL IV ONE (02:50)
[2019-07-30] MEDS: AMIODARONE INJ 450 MG in DEXTROSE 5% 241 ML IV SCH (03:09)
[2019-07-30 04:51] LABS: ABG Base Excess -2.4 MMOL/L (-2.5-2.5); ABG HCO3 22.4 MMOL/L (20-26); ABG Oxygen Saturation 99.8 % (95-100); ABG PCO2 36.5 MM HG (35-48); ABG PH 7.393 (7.35-7.45); ABG TCO2 21.2 MMOL/L (23-27)
[2019-07-30] MEDS: SODIUM CHLORIDE 0.45% 1,000 ML IV SCH ×2 (04:51→10:02)
[2019-07-30] MEDS: NOREPINEPHRINE 8 MG in SODIUM CHLORIDE 0.9% 242 ML IV PRN (04:52)
[2019-07-30 05:28] LABS: Basophils # 0.1 10*3/uL (0.0-0.2); Basophils % 0.8 % (0.0-0.8); Hematocrit 18.4 VOL% (42.0-52.0); Immature Granulocytes % 3.7 %; Immature Granulocytes Absolute 0.47 #; Lymphocytes % 7.9 % (21.2-54.2); Mean Corpuscular HGB Conc 34.8 GM/DL (32-36); Mean Corpuscular Volume 85.2 FL (87-102); Mean Platelet Volume 10.8 FL (9.6-12.0); Monocytes % 5.8 % (1.7-12.7); NRBC # 2.24 10*3/uL; Neutrophils % 81.8 % (38.7-73.9); Red Blood Count 2.16 MC/CUMM (3.8-5.5); Red Cell Distribution Width 15.3 % (9.3-17.3); White Blood Count 12.9 T/CUMM (4-12)
[2019-07-30 05:30] LABS: Hemoglobin 6.4 GM/DL (14.0-18.0)
[2019-07-30 05:31] LABS: Platelet Count 28 T/CUMM (130-400)
[2019-07-30 05:59] LABS: Band Neutrophils 15 % (0-10); Lymphocytes 13 % (20-55); Nucleated Red Blood Cells 19 (0-5); Segmented Neutrophils 67 % (50-85); Total Cells Counted 100
[2019-07-30 06:00] LABS: Alanine Aminotransferase 218 U/L (16-61); Alkaline Phosphatase 201 U/L (45-117); Aspartate Amino Transferase 1080 U/L (0-37); Blood Urea Nitrogen 58 MG/DL (7-18); Estimated Glom Filtration Rate 11 ML/MIN; Glucose 132 MG/DL (74-106); Hypochromasia 1+; Microcytosis Slight; Osmolality,Calculated 287.1 MOS/KG (273-304); Total Protein 3.8 G/DL (6.4-8.3)
[2019-07-30 06:01] LABS: Platelet Estimate Decreased; Polychromasia Slight
[2019-07-30 06:04] LABS: Calcium < 5.0 MG/DL (8.5-10.1)
[2019-07-30] MEDS: MAGNESIUM SULF RIDER 2 GM in PREMIX 1 EACH IV PRN (06:08)
[2019-07-30] MEDS ORDERED: SODIUM CHLORIDE 0.9% 1,000 ML IV PRN ×4 (07:09→13:38)
[2019-07-30] MEDS: BUDESONIDE 0.5 MG/2 ML NEB RESP TX SCH ×2 (08:04→20:12)
[2019-07-30] MEDS: methylPREDNISolone SOD SUC 40 MG/1 ML VIAL IV SCH ×2 (09:14→20:59)
[2019-07-30] MEDS: LEVOFLOXACIN INJ 500 MG in PREMIX 1 EACH IV SCH (09:28)
[2019-07-30] MEDS: INSULIN LISPRO 100 UNIT/ML SUBCUT SCH ×2 (15:48→20:59)
[2019-07-30] MEDS: PANTOPRAZOLE INJ 200 MG in SODIUM CHLORIDE 0.9% 250 ML IV SCH (18:11)
[2019-07-30] MEDS: MINERAL OIL/PETROLATUM OPH OINT 3.5 GM TUBE BOTH EYES SCH (20:59)
[2019-07-31] MEDS: CALCIUM GLUCONATE 2,000 MG in SODIUM CHLORIDE 0.9% 100 ML IV SCH ×5 (00:27→20:31)
[2019-07-31] MEDS: PIPERACILLIN/TAZOBACTAM 3,375 MG in SODIUM CHLORIDE 0.9% 100 ML IV SCH ×3 (00:27→17:38)
[2019-07-31] MEDS: INSULIN LISPRO 100 UNIT/ML SUBCUT SCH ×8 (00:28→20:31)
[2019-07-31] MEDS: ALBUTEROL/IPRATROPIUM 3 ML NEB RESP TX SCH ×6 (03:12→23:34)
[2019-07-31 04:21] LABS: ABG Base Excess -6.2 MMOL/L (-2.5-2.5); ABG HCO3 19.3 MMOL/L (20-26); ABG Oxygen Saturation 98.9 % (95-100); ABG PCO2 37.4 MM HG (35-48); ABG PH 7.321 (7.35-7.45)
[2019-07-31 04:23] LABS: Basophils # 0.1 10*3/uL (0.0-0.2); Basophils % 0.8 % (0.0-0.8); Hematocrit 24.9 VOL% (42.0-52.0); Hemoglobin 8.6 GM/DL (14.0-18.0); Immature Granulocytes % 5.7 %; Immature Granulocytes Absolute 0.82 #; Lymphocytes # 0.7 10*3/uL (1.4-4.0); Lymphocytes % 4.7 % (21.2-54.2); Mean Corpuscular HGB Conc 34.5 GM/DL (32-36); Mean Corpuscular Volume 86.5 FL (87-102); Mean Platelet Volume 11.7 FL (9.6-12.0); Monocytes % 7.8 % (1.7-12.7); NRBC # 1.45 10*3/uL; Platelet Count 52 T/CUMM (130-400); Red Blood Count 2.88 MC/CUMM (3.8-5.5); Red Cell Distribution Width 15.6 % (9.3-17.3); White Blood Count 14.3 T/CUMM (4-12)
[2019-07-31 04:33] LABS: INR 1.1; PT Patient Result 11.9 SECS (9.6-12.2)
[2019-07-31 04:48] LABS: Alanine Aminotransferase 197 U/L (16-61); Alkaline Phosphatase 201 U/L (45-117); Aspartate Amino Transferase 775 U/L (0-37); Blood Urea Nitrogen 70 MG/DL (7-18); Estimated Glom Filtration Rate 11 ML/MIN; Glucose 311 MG/DL (74-106); Osmolality,Calculated 296.5 MOS/KG (273-304); Total Protein 4.7 G/DL (6.4-8.3)
[2019-07-31 04:49] LABS: Calcium < 5.0 MG/DL (8.5-10.1)
[2019-07-31 04:55] LABS: Band Neutrophils 2 % (0-10); Lymphocytes 6 % (20-55); Microcytosis Slight; Nucleated Red Blood Cells 16 (0-5); Platelet Estimate Decreased; Segmented Neutrophils 85 % (50-85); Total Cells Counted 100
[2019-07-31] MEDS: BUDESONIDE 0.5 MG/2 ML NEB RESP TX SCH ×2 (07:20→20:04)
[2019-07-31] MEDS: methylPREDNISolone SOD SUC 40 MG/1 ML VIAL IV SCH ×2 (08:19→20:32)
[2019-07-31] MEDS ORDERED: DEXTROSE 50% 25 GM/50 ML VIAL IV PRN (08:51)
[2019-07-31] MEDS ORDERED: GLUCAGON 1 MG VIAL IM PRN (08:51)
[2019-07-31] MEDS: fentaNYL INJ 1,250 MCG in SODIUM CHLORIDE 0.9% 225 ML IV PRN (09:13)
[2019-07-31] MEDS ORDERED: INSULIN LISPRO 100 UNIT/ML ONE (09:34)
[2019-07-31] MEDS: INSULIN GLARGINE 100 UNIT/ML SUBCUT SCH (09:37)
[2019-07-31] MEDS ORDERED: INSULIN LISPRO 100 UNIT/ML SUBCUT SCH (10:00)
[2019-07-31] MEDS ORDERED: HEPARIN 5,000 UNIT/1 ML VIAL ONE (11:03)
[2019-07-31] MEDS ORDERED: PHENYLEPHRINE 1 MG/10 ML SYRINGE IV ONE (13:04)
[2019-07-31] MEDS ORDERED: MIDAZOLAM 2 MG/2 ML VIAL ONE (13:04)
[2019-07-31] MEDS ORDERED: PHENYLEPHRINE DRIP 20 MG/250 ML PREMIX IV ONE (13:04)
[2019-07-31] MEDS ORDERED: ROCURONIUM 100 MG/10 ML VIAL IV ONE (13:05)
[2019-07-31] MEDS: PANTOPRAZOLE INJ 200 MG in SODIUM CHLORIDE 0.9% 250 ML IV SCH (20:30)
[2019-07-31] MEDS: MINERAL OIL/PETROLATUM OPH OINT 3.5 GM TUBE BOTH EYES SCH (20:37)
[2019-08-01] MEDS: INSULIN LISPRO 100 UNIT/ML SUBCUT SCH ×6 (00:31→21:15)
[2019-08-01] MEDS: PIPERACILLIN/TAZOBACTAM 3,375 MG in SODIUM CHLORIDE 0.9% 100 ML IV SCH ×3 (00:32→17:34)
[2019-08-01] MEDS: CALCIUM GLUCONATE 2,000 MG in SODIUM CHLORIDE 0.9% 100 ML IV SCH ×4 (02:44→21:14)
[2019-08-01] MEDS: ALBUTEROL/IPRATROPIUM 3 ML NEB RESP TX SCH ×5 (03:11→19:11)
[2019-08-01 04:46] LABS: ABG Base Excess -7.6 MMOL/L (-2.5-2.5); ABG HCO3 18.2 MMOL/L (20-26); ABG Oxygen Saturation 98.8 % (95-100); ABG PCO2 40.9 MM HG (35-48); ABG PH 7.271 (7.35-7.45); ABG TCO2 17.7 MMOL/L (23-27)
[2019-08-01 04:48] LABS: Basophils # 0.1 10*3/uL (0.0-0.2); Basophils % 0.7 % (0.0-0.8); Hematocrit 25.7 VOL% (42.0-52.0); Hemoglobin 8.7 GM/DL (14.0-18.0); Immature Granulocytes % 4.5 %; Immature Granulocytes Absolute 0.71 #; Lymphocytes # 0.6 10*3/uL (1.4-4.0); Lymphocytes % 3.8 % (21.2-54.2); Mean Corpuscular HGB Conc 33.9 GM/DL (32-36); Mean Corpuscular Volume 88.6 FL (87-102); Mean Platelet Volume 11.7 FL (9.6-12.0); Monocytes % 5.4 % (1.7-12.7); NRBC # 1.08 10*3/uL; Neutrophils % 85.6 % (38.7-73.9); Platelet Count 44 T/CUMM (130-400); Red Cell Distribution Width 16.2 % (9.3-17.3); White Blood Count 15.9 T/CUMM (4-12)
[2019-08-01 05:09] LABS: Band Neutrophils 8 % (0-10); Hypochromasia 1+; Lymphocytes 8 % (20-55); Nucleated Red Blood Cells 10 (0-5); Ovalocytes Slight; Platelet Estimate Decreased; Segmented Neutrophils 82 % (50-85); Total Cells Counted 100
[2019-08-01 05:10] LABS: Macrocytosis Slight; Polychromasia Slight
[2019-08-01 05:38] LABS: Alanine Aminotransferase 191 U/L (16-61); Albumin 1.7 G/DL (3.4-5.0); Alkaline Phosphatase 208 U/L (45-117); Aspartate Amino Transferase 609 U/L (0-37); Blood Urea Nitrogen 104 MG/DL (7-18); Estimated Glom Filtration Rate 8 ML/MIN; Glucose 166 MG/DL (74-106); Osmolality,Calculated 309.8 MOS/KG (273-304); Total Protein 4.8 G/DL (6.4-8.3)
[2019-08-01 05:41] LABS: Calcium < 5.0 MG/DL (8.5-10.1)
[2019-08-01 05:58] LABS: INR 1.1; PT Patient Result 11.4 SECS (9.6-12.2)
[2019-08-01] MEDS: BUDESONIDE 0.5 MG/2 ML NEB RESP TX SCH ×2 (07:07→19:11)
[2019-08-01] MEDS: INSULIN GLARGINE 100 UNIT/ML SUBCUT SCH (09:03)
[2019-08-01] MEDS: LEVOFLOXACIN INJ 500 MG in PREMIX 1 EACH IV SCH (09:04)
[2019-08-01] MEDS: methylPREDNISolone SOD SUC 40 MG/1 ML VIAL IV SCH ×2 (09:04→21:14)
[2019-08-01] MEDS: MIDAZOLAM 100 MG in SODIUM CHLORIDE 0.9% 80 ML IV PRN (10:07)
[2019-08-01] MEDS: NOREPINEPHRINE 8 MG in SODIUM CHLORIDE 0.9% 242 ML IV PRN (14:54)
[2019-08-01] MEDS ORDERED: DEXTROSE 10% 1,000 ML IV PRN (17:00)
[2019-08-01] MEDS ORDERED: MULTIVITAMIN INJ 10 ML in DEXTROSE 50% 400 ML, AMINO ACIDS 10% 600 ML IV SCH (17:00)
[2019-08-01] MEDS: fentaNYL INJ 1,250 MCG in SODIUM CHLORIDE 0.9% 225 ML IV PRN (18:10)
[2019-08-01] MEDS: PANTOPRAZOLE 40 MG VIAL IV SCH (21:14)
[2019-08-01] MEDS: MINERAL OIL/PETROLATUM OPH OINT 3.5 GM TUBE BOTH EYES SCH (21:16)
[2019-08-02] MEDS: PIPERACILLIN/TAZOBACTAM 3,375 MG in SODIUM CHLORIDE 0.9% 100 ML IV SCH ×3 (00:45→13:18)
[2019-08-02] MEDS: INSULIN LISPRO 100 UNIT/ML SUBCUT SCH ×6 (00:47→20:34)
[2019-08-02] MEDS: CALCIUM GLUCONATE 2,000 MG in SODIUM CHLORIDE 0.9% 100 ML IV SCH ×4 (01:30→20:16)
[2019-08-02 03:36] LABS: ABG Base Excess -3.9 MMOL/L (-2.5-2.5); ABG HCO3 21.2 MMOL/L (20-26); ABG Oxygen Saturation 99.1 % (95-100); ABG PCO2 39.2 MM HG (35-48); ABG PH 7.346 (7.35-7.45); ABG TCO2 20.1 MMOL/L (23-27)
[2019-08-02 03:57] LABS: Albumin 1.4 G/DL (3.4-5.0); Osmolality,Calculated 305.1 MOS/KG (273-304); Total Protein 4.5 G/DL (6.4-8.3)
[2019-08-02] MEDS: ALBUTEROL/IPRATROPIUM 3 ML NEB RESP TX SCH ×7 (03:57→23:54)
[2019-08-02 04:07] LABS: Calcium 5.7 MG/DL (8.5-10.1)
[2019-08-02 04:12] LABS: Prealbumin 11.5 MG/DL (20-40)
[2019-08-02 04:31] LABS: Basophils % 0.3 % (0.0-0.8); Hemoglobin 7.7 GM/DL (14.0-18.0); Immature Granulocytes % 2.4 %; Immature Granulocytes Absolute 0.31 #; Lymphocytes # 0.5 10*3/uL (1.4-4.0); Lymphocytes % 3.5 % (21.2-54.2); Mean Corpuscular HGB Conc 33.5 GM/DL (32-36); Mean Corpuscular Volume 88.5 FL (87-102); Mean Platelet Volume 12.9 FL (9.6-12.0); Monocytes % 3.7 % (1.7-12.7); NRBC # 0.23 10*3/uL; Neutrophils % 90.1 % (38.7-73.9); Red Cell Distribution Width 16.1 % (9.3-17.3); White Blood Count 12.7 T/CUMM (4-12)
[2019-08-02 04:34] LABS: Platelet Count 55 T/CUMM (130-400)
[2019-08-02 05:14] LABS: Band Neutrophils 2 % (0-10); Lymphocytes 5 % (20-55); Segmented Neutrophils 90 % (50-85); Total Cells Counted 100
[2019-08-02 05:15] LABS: Anisocytosis 1+; Hypochromasia 1+; Platelet Estimate Decreased
[2019-08-02] MEDS: fentaNYL INJ 1,250 MCG in SODIUM CHLORIDE 0.9% 225 ML IV PRN ×2 (06:11→19:16)
[2019-08-02] MEDS ORDERED: SODIUM CHLORIDE 0.9% 1,000 ML IV PRN ×2 (07:06→07:21)
[2019-08-02] MEDS ORDERED: SEVOFLURANE 1 UNIT/15 MINUTE INH ONE (08:36)
[2019-08-02] MEDS ORDERED: MIDAZOLAM 2 MG/2 ML VIAL ONE (08:36)
[2019-08-02] MEDS ORDERED: SODIUM CHLORIDE 0.9% 1,000 ML IV ONE (08:37)
[2019-08-02] MEDS ORDERED: PHENYLEPHRINE 1 MG/10 ML SYRINGE IV ONE (08:37)
[2019-08-02] MEDS ORDERED: ROCURONIUM 100 MG/10 ML VIAL IV ONE (08:37)
[2019-08-02] MEDS: BUDESONIDE 0.5 MG/2 ML NEB RESP TX SCH ×2 (08:40→19:06)
[2019-08-02] MEDS: INSULIN GLARGINE 100 UNIT/ML SUBCUT SCH (09:19)
[2019-08-02] MEDS: methylPREDNISolone SOD SUC 40 MG/1 ML VIAL IV SCH ×2 (09:28→20:26)
[2019-08-02] MEDS: PANTOPRAZOLE 40 MG VIAL IV SCH ×2 (09:34→20:26)
[2019-08-02] MEDS: MIDAZOLAM 100 MG in SODIUM CHLORIDE 0.9% 80 ML IV PRN (10:40)
[2019-08-02] MEDS ORDERED: CALCIUM GLUCONATE 2,000 MG in SODIUM CHLORIDE 0.9% 100 ML IV ONE (13:00)
[2019-08-02] MEDS: MULTIVITAMIN IV SCH (17:06)
[2019-08-02] MEDS: DEXTROSE IV SCH (17:06)
[2019-08-02] MEDS: AMINO ACIDS 10% IV SCH (17:06)
[2019-08-02] MEDS: MINERAL OIL/PETROLATUM OPH OINT 3.5 GM TUBE BOTH EYES SCH (20:29)
[2019-08-03] MEDS: PIPERACILLIN/TAZOBACTAM 3,375 MG in SODIUM CHLORIDE 0.9% 100 ML IV SCH ×2 (00:51→12:35)
[2019-08-03] MEDS: INSULIN LISPRO 100 UNIT/ML SUBCUT SCH ×6 (00:57→20:35)
[2019-08-03] MEDS: CALCIUM GLUCONATE 2,000 MG in SODIUM CHLORIDE 0.9% 100 ML IV SCH ×4 (01:11→20:35)
[2019-08-03] MEDS: ALBUTEROL/IPRATROPIUM 3 ML NEB RESP TX SCH ×6 (03:14→23:05)
[2019-08-03 04:45] LABS: Basophils # 0.1 10*3/uL (0.0-0.2); Basophils % 0.6 % (0.0-0.8); Hematocrit 30.7 VOL% (42.0-52.0); Immature Granulocytes % 2.3 %; Immature Granulocytes Absolute 0.26 #; Lymphocytes # 0.4 10*3/uL (1.4-4.0); Lymphocytes % 3.8 % (21.2-54.2); Mean Corpuscular HGB Conc 33.6 GM/DL (32-36); Mean Corpuscular Volume 91.1 FL (87-102); Mean Platelet Volume 12.3 FL (9.6-12.0); NRBC # 0.14 10*3/uL; Neutrophils % 90.3 % (38.7-73.9); Platelet Count 101 T/CUMM (130-400); Red Blood Count 3.37 MC/CUMM (3.8-5.5); Red Cell Distribution Width 15.6 % (9.3-17.3); White Blood Count 11.2 T/CUMM (4-12)
[2019-08-03 04:47] LABS: Hemoglobin 10.3 GM/DL (14.0-18.0)
[2019-08-03 04:59] LABS: Albumin 1.5 G/DL (3.4-5.0); Calcium 6.5 MG/DL (8.5-10.1)
[2019-08-03 05:58] LABS: ABG Base Excess -5.2 MMOL/L (-2.5-2.5); ABG HCO3 20.1 MMOL/L (20-26); ABG Oxygen Saturation 99.5 % (95-100); ABG PCO2 35.7 MM HG (35-48); ABG TCO2 17.9 MMOL/L (23-27)
[2019-08-03] MEDS: MIDAZOLAM 100 MG in SODIUM CHLORIDE 0.9% 80 ML IV PRN (06:02)
[2019-08-03 06:05] LABS: Band Neutrophils 18 % (0-10); Hypochromasia 2+; Lymphocytes 2 % (20-55); Platelet Estimate Decreased; Segmented Neutrophils 78 % (50-85); Total Cells Counted 100
[2019-08-03] MEDS: BUDESONIDE 0.5 MG/2 ML NEB RESP TX SCH ×2 (06:47→20:11)
[2019-08-03] MEDS: INSULIN GLARGINE 100 UNIT/ML SUBCUT SCH (08:35)
[2019-08-03] MEDS: methylPREDNISolone SOD SUC 40 MG/1 ML VIAL IV SCH ×2 (08:36→20:35)
[2019-08-03] MEDS: PANTOPRAZOLE 40 MG VIAL IV SCH ×2 (08:36→20:34)
[2019-08-03] MEDS: LEVOFLOXACIN INJ 500 MG in PREMIX 1 EACH IV SCH (08:37)
[2019-08-03] MEDS ORDERED: INSULIN GLARGINE 100 UNIT/ML SUBCUT SCH (09:21)
[2019-08-03] MEDS: fentaNYL INJ 1,250 MCG in SODIUM CHLORIDE 0.9% 225 ML IV PRN ×2 (09:25→20:55)
[2019-08-03] MEDS ORDERED: INSULIN GLARGINE 100 UNIT/ML SUBCUT ONE (11:00)
[2019-08-03] MEDS: AMINO ACIDS 10% IV SCH (16:36)
[2019-08-03] MEDS: MULTIVITAMIN IV SCH (16:36)
[2019-08-03] MEDS: DEXTROSE IV SCH (16:36)
[2019-08-03] MEDS: MINERAL OIL/PETROLATUM OPH OINT 3.5 GM TUBE BOTH EYES SCH (20:35)
[2019-08-04] MEDS: INSULIN LISPRO 100 UNIT/ML SUBCUT SCH ×7 (00:15→23:39)
[2019-08-04] MEDS: CALCIUM GLUCONATE 2,000 MG in SODIUM CHLORIDE 0.9% 100 ML IV SCH ×4 (01:34→20:16)
[2019-08-04] MEDS: PIPERACILLIN/TAZOBACTAM 3,375 MG in SODIUM CHLORIDE 0.9% 100 ML IV SCH ×2 (01:34→13:59)
[2019-08-04] MEDS: ALBUTEROL/IPRATROPIUM 3 ML NEB RESP TX SCH ×6 (03:08→23:47)
[2019-08-04 03:30] LABS: ABG Base Excess -9.9 MMOL/L (-2.5-2.5); ABG HCO3 16.5 MMOL/L (20-26); ABG Oxygen Saturation 99.7 % (95-100); ABG PCO2 33.1 MM HG (35-48); ABG PH 7.288 (7.35-7.45); ABG TCO2 14.6 MMOL/L (23-27)
[2019-08-04 03:52] LABS: Basophils # 0.1 10*3/uL (0.0-0.2); Basophils % 0.6 % (0.0-0.8); Eosinophils % 0.1 % (0.00-10.9); Hemoglobin 10.1 GM/DL (14.0-18.0); Immature Granulocytes % 1.8 %; Lymphocytes # 0.4 10*3/uL (1.4-4.0); Lymphocytes % 3.6 % (21.2-54.2); Mean Corpuscular HGB Conc 32.6 GM/DL (32-36); Mean Corpuscular Volume 91.7 FL (87-102); Mean Platelet Volume 12.2 FL (9.6-12.0); Monocytes % 3.1 % (1.7-12.7); NRBC # 0.06 10*3/uL; Neutrophils % 90.8 % (38.7-73.9); Platelet Count 110 T/CUMM (130-400); Red Blood Count 3.38 MC/CUMM (3.8-5.5); Red Cell Distribution Width 15.9 % (9.3-17.3); White Blood Count 11.1 T/CUMM (4-12)
[2019-08-04 04:16] LABS: Band Neutrophils 16 % (0-10); Hypochromasia 1+; Lymphocytes 4 % (20-55); Nucleated Red Blood Cells 1 (0-5); Ovalocytes Slight; Platelet Estimate Decreased; Segmented Neutrophils 74 % (50-85); Total Cells Counted 100
[2019-08-04 04:19] LABS: Albumin 1.5 G/DL (3.4-5.0); Bilirubin,Total 1.8 MG/DL (0.2-1.0); Calcium 6.3 MG/DL (8.5-10.1); Osmolality,Calculated 308.4 MOS/KG (273-304); Total Protein 5.1 G/DL (6.4-8.3)
[2019-08-04] MEDS: fentaNYL INJ 1,250 MCG in SODIUM CHLORIDE 0.9% 225 ML IV PRN ×2 (05:57→14:58)
[2019-08-04] MEDS: MIDAZOLAM 100 MG in SODIUM CHLORIDE 0.9% 80 ML IV PRN (06:01)
[2019-08-04] MEDS: BUDESONIDE 0.5 MG/2 ML NEB RESP TX SCH ×2 (07:53→19:55)
[2019-08-04] MEDS: SODIUM BICARBONATE 50 MEQ/50 ML VIAL IV SCH ×2 (09:00→13:54)
[2019-08-04] MEDS: INSULIN GLARGINE 100 UNIT/ML SUBCUT SCH (09:04)
[2019-08-04] MEDS: PANTOPRAZOLE 40 MG VIAL IV SCH ×2 (09:07→20:17)
[2019-08-04] MEDS: methylPREDNISolone SOD SUC 40 MG/1 ML VIAL IV SCH ×2 (09:11→20:20)
[2019-08-04] MEDS: MULTIVITAMIN IV SCH (16:58)
[2019-08-04] MEDS: DEXTROSE IV SCH (16:58)
[2019-08-04] MEDS: AMINO ACIDS 10% IV SCH (16:58)
[2019-08-04] MEDS: MINERAL OIL/PETROLATUM OPH OINT 3.5 GM TUBE BOTH EYES SCH (20:20)
[2019-08-05] MEDS: fentaNYL INJ 1,250 MCG in SODIUM CHLORIDE 0.9% 225 ML IV PRN ×3 (00:10→18:04)
[2019-08-05] MEDS: PIPERACILLIN/TAZOBACTAM 3,375 MG in SODIUM CHLORIDE 0.9% 100 ML IV SCH ×2 (01:12→12:22)
[2019-08-05] MEDS: CALCIUM GLUCONATE 2,000 MG in SODIUM CHLORIDE 0.9% 100 ML IV SCH ×2 (01:13→08:06)
[2019-08-05] MEDS: ALBUTEROL/IPRATROPIUM 3 ML NEB RESP TX SCH ×6 (03:24→23:20)
[2019-08-05 04:22] LABS: ABG Base Excess -10.7 MMOL/L (-2.5-2.5); ABG HCO3 15.9 MMOL/L (20-26); ABG Oxygen Saturation 98.9 % (95-100); ABG PCO2 38.2 MM HG (35-48); ABG PH 7.234 (7.35-7.45)
[2019-08-05] MEDS: INSULIN LISPRO 100 UNIT/ML SUBCUT SCH ×5 (04:42→20:50)
[2019-08-05 05:03] LABS: Basophils # 0.1 10*3/uL (0.0-0.2); Basophils % 0.8 % (0.0-0.8); Eosinophils % 0.1 % (0.00-10.9); Hematocrit 29.7 VOL% (42.0-52.0); Hemoglobin 9.6 GM/DL (14.0-18.0); Immature Granulocytes % 1.7 %; Immature Granulocytes Absolute 0.21 #; Lymphocytes # 0.3 10*3/uL (1.4-4.0); Lymphocytes % 2.2 % (21.2-54.2); Mean Corpuscular HGB Conc 32.3 GM/DL (32-36); Mean Corpuscular Volume 93.7 FL (87-102); Mean Platelet Volume 12.5 FL (9.6-12.0); Monocytes % 3.5 % (1.7-12.7); NRBC # 0.07 10*3/uL; Neutrophils % 91.7 % (38.7-73.9); Platelet Count 119 T/CUMM (130-400); Red Blood Count 3.17 MC/CUMM (3.8-5.5); Red Cell Distribution Width 15.8 % (9.3-17.3); White Blood Count 12.4 T/CUMM (4-12)
[2019-08-05 05:29] LABS: Prealbumin 14.5 MG/DL (20-40)
[2019-08-05 05:43] LABS: Band Neutrophils 2 % (0-10); Hypochromasia 1+; Lymphocytes 3 % (20-55); Ovalocytes Slight; Platelet Estimate Decreased; Segmented Neutrophils 91 % (50-85); Total Cells Counted 100
[2019-08-05 05:49] LABS: Albumin 1.3 G/DL (3.4-5.0); Bilirubin,Total 1.7 MG/DL (0.2-1.0); Calcium 6.5 MG/DL (8.5-10.1); Osmolality,Calculated 315.4 MOS/KG (273-304); Total Protein 5.3 G/DL (6.4-8.3)
[2019-08-05] MEDS ORDERED: SODIUM BICARB INJ 50 MEQ, DEXTROSE 50% 25 GM, INSULIN REGULAR 10 UNIT in SODIUM CHLORID... IV ONE (06:30)
[2019-08-05] MEDS: MIDAZOLAM 100 MG in SODIUM CHLORIDE 0.9% 80 ML IV PRN (07:14)
[2019-08-05] MEDS: BUDESONIDE 0.5 MG/2 ML NEB RESP TX SCH ×2 (07:54→18:30)
[2019-08-05] MEDS: methylPREDNISolone SOD SUC 40 MG/1 ML VIAL IV SCH ×2 (08:04→20:50)
[2019-08-05] MEDS: INSULIN GLARGINE 100 UNIT/ML SUBCUT SCH (08:05)
[2019-08-05] MEDS: PANTOPRAZOLE 40 MG VIAL IV SCH ×2 (08:05→20:51)
[2019-08-05] MEDS: LEVOFLOXACIN INJ 500 MG in PREMIX 1 EACH IV SCH (08:27)
[2019-08-05] MEDS: DOPamine 800 MG/250 ML PREMIX IV PRN (09:20)
[2019-08-05] MEDS ORDERED: SEVOFLURANE 1 UNIT/15 MINUTE INH ONE (14:46)
[2019-08-05] MEDS ORDERED: PHENYLEPHRINE 1 MG/10 ML SYRINGE IV ONE (14:46)
[2019-08-05] MEDS ORDERED: MIDAZOLAM 2 MG/2 ML VIAL ONE (14:46)
[2019-08-05] MEDS ORDERED: ROCURONIUM 100 MG/10 ML VIAL IV ONE (14:47)
[2019-08-05] MEDS: AMINO ACIDS 10% IV SCH (16:41)
[2019-08-05] MEDS: MULTIVITAMIN IV SCH (16:41)
[2019-08-05] MEDS: DEXTROSE IV SCH (16:41)
[2019-08-05] MEDS: MINERAL OIL/PETROLATUM OPH OINT 3.5 GM TUBE BOTH EYES SCH (20:51)
[2019-08-06] MEDS: PIPERACILLIN/TAZOBACTAM 3,375 MG in SODIUM CHLORIDE 0.9% 100 ML IV SCH ×2 (01:53→12:08)
[2019-08-06] MEDS: INSULIN LISPRO 100 UNIT/ML SUBCUT SCH ×7 (01:53→23:42)
[2019-08-06] MEDS: fentaNYL INJ 1,250 MCG in SODIUM CHLORIDE 0.9% 225 ML IV PRN ×2 (02:48→12:54)
[2019-08-06] MEDS: ALBUTEROL/IPRATROPIUM 3 ML NEB RESP TX SCH ×5 (03:00→19:16)
[2019-08-06 04:47] LABS: ABG Base Excess -6.6 MMOL/L (-2.5-2.5); ABG HCO3 19.1 MMOL/L (20-26); ABG Oxygen Saturation 99.1 % (95-100); ABG PCO2 42.4 MM HG (35-48); ABG PH 7.281 (7.35-7.45); ABG TCO2 18.1 MMOL/L (23-27)
[2019-08-06 05:01] LABS: Basophils # 0.1 10*3/uL (0.0-0.2); Basophils % 0.7 % (0.0-0.8); Eosinophils % 0.1 % (0.00-10.9); Hematocrit 30.5 VOL% (42.0-52.0); Hemoglobin 9.8 GM/DL (14.0-18.0); Immature Granulocytes % 1.5 %; Immature Granulocytes Absolute 0.19 #; Lymphocytes # 0.3 10*3/uL (1.4-4.0); Lymphocytes % 2.2 % (21.2-54.2); Mean Corpuscular HGB Conc 32.1 GM/DL (32-36); Mean Corpuscular Volume 92.4 FL (87-102); Mean Platelet Volume 12.6 FL (9.6-12.0); Monocytes % 4.9 % (1.7-12.7); NRBC # 0.08 10*3/uL; Neutrophils % 90.6 % (38.7-73.9); Platelet Count 150 T/CUMM (130-400); Red Cell Distribution Width 15.8 % (9.3-17.3); White Blood Count 12.9 T/CUMM (4-12)
[2019-08-06 05:31] LABS: Band Neutrophils 9 % (0-10); Eosinophils 1 % (0-10); Lymphocytes 2 % (20-55); Nucleated Red Blood Cells 1 (0-5); Segmented Neutrophils 81 % (50-85); Total Cells Counted 100
[2019-08-06 05:32] LABS: Hypochromasia Slight; Platelet Estimate Adequate
[2019-08-06 05:36] LABS: Osmolality,Calculated 297.5 MOS/KG (273-304)
[2019-08-06 05:47] LABS: Albumin 1.3 G/DL (3.4-5.0); Bilirubin,Total 1.9 MG/DL (0.2-1.0); Osmolality,Calculated 297.5 MOS/KG (273-304); Total Protein 4.8 G/DL (6.4-8.3)
[2019-08-06 05:49] LABS: Calcium 5.7 MG/DL (8.5-10.1)
[2019-08-06] MEDS: BUDESONIDE 0.5 MG/2 ML NEB RESP TX SCH ×2 (07:34→19:16)
[2019-08-06] MEDS: INSULIN GLARGINE 100 UNIT/ML SUBCUT SCH (08:12)
[2019-08-06] MEDS: PANTOPRAZOLE 40 MG VIAL IV SCH ×2 (08:12→20:29)
[2019-08-06] MEDS: methylPREDNISolone SOD SUC 40 MG/1 ML VIAL IV SCH ×2 (08:13→20:29)
[2019-08-06] MEDS: MIDAZOLAM 100 MG in SODIUM CHLORIDE 0.9% 80 ML IV PRN (08:17)
[2019-08-06] MEDS: INSULIN REGULAR IV SCH (17:35)
[2019-08-06] MEDS: MULTIVITAMIN IV SCH (17:35)
[2019-08-06] MEDS: DEXTROSE IV SCH (17:35)
[2019-08-06] MEDS: [UNRECOGNIZED DRUG - OTHER] IV SCH (17:35)
[2019-08-06] MEDS: MINERAL OIL/PETROLATUM OPH OINT 3.5 GM TUBE BOTH EYES SCH (20:30)
[2019-08-07] MEDS: PIPERACILLIN/TAZOBACTAM 3,375 MG in SODIUM CHLORIDE 0.9% 100 ML IV SCH ×2 (00:06→14:46)
[2019-08-07] MEDS: ALBUTEROL/IPRATROPIUM 3 ML NEB RESP TX SCH ×7 (00:10→23:34)
[2019-08-07] MEDS: fentaNYL INJ 1,250 MCG in SODIUM CHLORIDE 0.9% 225 ML IV PRN ×2 (04:06→14:57)
[2019-08-07 04:35] LABS: ABG Base Excess -10.1 MMOL/L (-2.5-2.5); ABG HCO3 16.3 MMOL/L (20-26); ABG Oxygen Saturation 99.3 % (95-100); ABG PCO2 38.9 MM HG (35-48); ABG PH 7.238 (7.35-7.45); ABG TCO2 15.7 MMOL/L (23-27)
[2019-08-07 04:39] LABS: Basophils # 0.1 10*3/uL (0.0-0.2); Basophils % 0.5 % (0.0-0.8); Hematocrit 27.1 VOL% (42.0-52.0); Hemoglobin 8.8 GM/DL (14.0-18.0); Immature Granulocytes % 1.1 %; Immature Granulocytes Absolute 0.17 #; Lymphocytes # 0.3 10*3/uL (1.4-4.0); Mean Corpuscular HGB Conc 32.5 GM/DL (32-36); Mean Corpuscular Volume 93.8 FL (87-102); Mean Platelet Volume 12.7 FL (9.6-12.0); Monocytes % 5.2 % (1.7-12.7); NRBC # 0.07 10*3/uL; Neutrophils % 91.2 % (38.7-73.9); Platelet Count 166 T/CUMM (130-400); Red Blood Count 2.89 MC/CUMM (3.8-5.5); Red Cell Distribution Width 15.5 % (9.3-17.3); White Blood Count 14.9 T/CUMM (4-12)
[2019-08-07 05:06] LABS: Osmolality,Calculated 304.9 MOS/KG (273-304)
[2019-08-07 05:12] LABS: Band Neutrophils 14 % (0-10); Lymphocytes 1 % (20-55); Metamyelocytes 1 %; Nucleated Red Blood Cells 1 (0-5); Segmented Neutrophils 76 % (50-85); Total Cells Counted 100
[2019-08-07 05:13] LABS: Calcium 5.5 MG/DL (8.5-10.1); Hypochromasia 1+; Microcytosis Slight; Polychromasia Slight
[2019-08-07] MEDS: INSULIN LISPRO 100 UNIT/ML SUBCUT SCH ×5 (05:13→20:30)
[2019-08-07 05:14] LABS: Platelet Estimate Adequate
[2019-08-07] MEDS ORDERED: CALCIUM GLUCONATE 2,000 MG in SODIUM CHLORIDE 0.9% 100 ML IV ONE ×2 (05:21→20:00)
[2019-08-07] MEDS: BUDESONIDE 0.5 MG/2 ML NEB RESP TX SCH ×2 (07:12→20:00)
[2019-08-07] MEDS: INSULIN GLARGINE 100 UNIT/ML SUBCUT SCH (09:36)
[2019-08-07] MEDS: PANTOPRAZOLE 40 MG VIAL IV SCH ×2 (09:36→20:30)
[2019-08-07] MEDS: methylPREDNISolone SOD SUC 40 MG/1 ML VIAL IV SCH ×2 (09:38→14:47)
[2019-08-07] MEDS: MIDAZOLAM 100 MG in SODIUM CHLORIDE 0.9% 80 ML IV PRN (10:42)
[2019-08-07] MEDS: INSULIN REGULAR IV SCH (17:01)
[2019-08-07] MEDS: [UNRECOGNIZED DRUG - OTHER] IV SCH (17:01)
[2019-08-07] MEDS: DEXTROSE IV SCH (17:01)
[2019-08-07] MEDS: MULTIVITAMIN IV SCH (17:01)
[2019-08-07] MEDS: DOPamine 800 MG/250 ML PREMIX IV PRN (17:22)
[2019-08-07] MEDS ORDERED: ALBUMIN 25% 25 GM in PREMIX 1 EACH IV ONE (19:09)
[2019-08-07] MEDS: MINERAL OIL/PETROLATUM OPH OINT 3.5 GM TUBE BOTH EYES SCH (21:25)
[2019-08-08] MEDS: INSULIN LISPRO 100 UNIT/ML SUBCUT SCH ×6 (00:22→20:40)
[2019-08-08] MEDS: methylPREDNISolone SOD SUC 40 MG/1 ML VIAL IV SCH ×2 (00:32→13:27)
[2019-08-08] MEDS: PIPERACILLIN/TAZOBACTAM 3,375 MG in SODIUM CHLORIDE 0.9% 100 ML IV SCH ×2 (00:50→13:15)
[2019-08-08] MEDS: fentaNYL INJ 1,250 MCG in SODIUM CHLORIDE 0.9% 225 ML IV PRN ×4 (03:00→19:55)
[2019-08-08 03:15] LABS: ABG Base Excess -5.8 MMOL/L (-2.5-2.5); ABG HCO3 19.3 MMOL/L (20-26); ABG Oxygen Saturation 98.6 % (95-100); ABG PCO2 36.1 MM HG (35-48); ABG PH 7.346 (7.35-7.45); ABG PO2 164.8 MM HG (80-95); ABG TCO2 20.4 MMOL/L (23-27); Allen Test Positive; Pt O2 Delivery Device Ventilator
[2019-08-08] MEDS: ALBUTEROL/IPRATROPIUM 3 ML NEB RESP TX SCH ×6 (03:24→22:51)
[2019-08-08 05:20] LABS: Basophils # 0.1 10*3/uL (0.0-0.2); Basophils % 0.4 % (0.0-0.8); Hematocrit 22.7 VOL% (42.0-52.0); Hemoglobin 7.5 GM/DL (14.0-18.0); Immature Granulocytes % 1.1 %; Immature Granulocytes Absolute 0.13 #; Lymphocytes # 0.2 10*3/uL (1.4-4.0); Lymphocytes % 1.4 % (21.2-54.2); Mean Corpuscular Volume 92.3 FL (87-102); Monocytes % 5.1 % (1.7-12.7); NRBC # 0.04 10*3/uL; Platelet Count 160 T/CUMM (130-400); Red Blood Count 2.46 MC/CUMM (3.8-5.5); Red Cell Distribution Width 15.3 % (9.3-17.3)
[2019-08-08 05:41] LABS: Band Neutrophils 5 % (0-10); Hypochromasia 1+; Lymphocytes 1 % (20-55); Platelet Estimate Adequate; Segmented Neutrophils 88 % (50-85); Total Cells Counted 100
[2019-08-08 05:42] LABS: Microcytosis Slight
[2019-08-08 05:46] LABS: Albumin 1.5 G/DL (3.4-5.0); Bilirubin,Total 1.1 MG/DL (0.2-1.0); Calcium 6.6 MG/DL (8.5-10.1); Osmolality,Calculated 293.7 MOS/KG (273-304); Total Protein 5.4 G/DL (6.4-8.3)
[2019-08-08 05:47] LABS: Calcium 6.7 MG/DL (8.5-10.1); Osmolality,Calculated 293.7 MOS/KG (273-304); Prealbumin 15.1 MG/DL (20-40)
[2019-08-08] MEDS ORDERED: SODIUM CHLORIDE 0.9% 1,000 ML IV PRN (07:18)
[2019-08-08] MEDS: BUDESONIDE 0.5 MG/2 ML NEB RESP TX SCH ×2 (07:44→20:04)
[2019-08-08] MEDS ORDERED: MIDAZOLAM 2 MG/2 ML VIAL ONE (09:16)
[2019-08-08] MEDS ORDERED: SEVOFLURANE 1 UNIT/15 MINUTE INH ONE (09:16)
[2019-08-08] MEDS ORDERED: ROCURONIUM 100 MG/10 ML VIAL IV ONE (09:16)
[2019-08-08] MEDS ORDERED: SODIUM BICARBONATE 50 MEQ/50 ML VIAL IV ONE (09:16)
[2019-08-08] MEDS: INSULIN GLARGINE 100 UNIT/ML SUBCUT SCH (09:52)
[2019-08-08] MEDS: PANTOPRAZOLE 40 MG VIAL IV SCH ×2 (09:53→22:42)
[2019-08-08] MEDS: METOPROLOL TARTRATE 5 MG/5 ML VIAL IV SCH ×2 (13:10→18:22)
[2019-08-08] MEDS: [UNRECOGNIZED DRUG - OTHER] IV SCH (18:21)
[2019-08-08] MEDS: DEXTROSE IV SCH (18:21)
[2019-08-08] MEDS: MULTIVITAMIN IV SCH (18:21)
[2019-08-08] MEDS: INSULIN REGULAR IV SCH (18:21)
[2019-08-08] MEDS: MINERAL OIL/PETROLATUM OPH OINT 3.5 GM TUBE BOTH EYES SCH (22:42)
[2019-08-09] MEDS: INSULIN LISPRO 100 UNIT/ML SUBCUT SCH ×6 (01:26→20:33)
[2019-08-09] MEDS: METOPROLOL TARTRATE 5 MG/5 ML VIAL IV SCH ×4 (01:26→17:55)
[2019-08-09] MEDS: methylPREDNISolone SOD SUC 40 MG/1 ML VIAL IV SCH ×2 (01:27→12:34)
[2019-08-09] MEDS: PIPERACILLIN/TAZOBACTAM 3,375 MG in SODIUM CHLORIDE 0.9% 100 ML IV SCH ×2 (01:55→12:35)
[2019-08-09] MEDS: ALBUTEROL/IPRATROPIUM 3 ML NEB RESP TX SCH ×6 (02:31→23:28)
[2019-08-09 03:09] LABS: ABG Base Excess -9.2 MMOL/L (-2.5-2.5); ABG HCO3 17.1 MMOL/L (20-26); ABG Oxygen Saturation 99.3 % (95-100); ABG PCO2 36.7 MM HG (35-48); ABG PH 7.274 (7.35-7.45); ABG TCO2 15.5 MMOL/L (23-27); Allen Test Positive; Pt O2 Delivery Device Ventilator
[2019-08-09] MEDS: MIDAZOLAM 100 MG in SODIUM CHLORIDE 0.9% 80 ML IV PRN (04:06)
[2019-08-09 05:23] LABS: Basophils # 0.1 10*3/uL (0.0-0.2); Basophils % 0.7 % (0.0-0.8); Eosinophils % 0.1 % (0.00-10.9); Hematocrit 29.5 VOL% (42.0-52.0); Hemoglobin 9.7 GM/DL (14.0-18.0); Immature Granulocytes % 0.7 %; Immature Granulocytes Absolute 0.07 #; Lymphocytes # 0.2 10*3/uL (1.4-4.0); Lymphocytes % 1.6 % (21.2-54.2); Mean Corpuscular HGB Conc 32.9 GM/DL (32-36); Mean Platelet Volume 12.5 FL (9.6-12.0); Monocytes % 2.1 % (1.7-12.7); NRBC # 0.04 10*3/uL; Neutrophils % 94.8 % (38.7-73.9); Platelet Count 162 T/CUMM (130-400); Red Blood Count 3.24 MC/CUMM (3.8-5.5); Red Cell Distribution Width 14.9 % (9.3-17.3); White Blood Count 10.4 T/CUMM (4-12)
[2019-08-09 05:42] LABS: Osmolality,Calculated 291.4 MOS/KG (273-304)
[2019-08-09 05:47] LABS: Calcium 5.8 MG/DL (8.5-10.1)
[2019-08-09] MEDS ORDERED: CALCIUM GLUCONATE 2,000 MG in SODIUM CHLORIDE 0.9% 100 ML IV ONE (05:54)
[2019-08-09 06:09] LABS: Anisocytosis Slight; Poikilocytosis Slight
[2019-08-09 06:10] LABS: Ovalocytes Slight; Platelet Estimate Adequate
[2019-08-09] MEDS: BUDESONIDE 0.5 MG/2 ML NEB RESP TX SCH ×2 (07:01→19:04)
[2019-08-09] MEDS: fentaNYL INJ 1,250 MCG in SODIUM CHLORIDE 0.9% 225 ML IV PRN ×2 (07:05→22:18)
[2019-08-09] MEDS: PANTOPRAZOLE 40 MG VIAL IV SCH ×2 (09:08→21:39)
[2019-08-09] MEDS: INSULIN GLARGINE 100 UNIT/ML SUBCUT SCH (09:11)
[2019-08-09] MEDS: INSULIN REGULAR IV SCH (16:32)
[2019-08-09] MEDS: [UNRECOGNIZED DRUG - OTHER] IV SCH (16:32)
[2019-08-09] MEDS: DEXTROSE IV SCH (16:32)
[2019-08-09] MEDS: MULTIVITAMIN IV SCH (16:32)
[2019-08-09] MEDS: MINERAL OIL/PETROLATUM OPH OINT 3.5 GM TUBE BOTH EYES SCH (21:42)
[2019-08-10] MEDS: INSULIN LISPRO 100 UNIT/ML SUBCUT SCH ×7 (00:33→23:34)
[2019-08-10] MEDS: METOPROLOL TARTRATE 5 MG/5 ML VIAL IV SCH ×4 (00:48→17:49)
[2019-08-10] MEDS: methylPREDNISolone SOD SUC 40 MG/1 ML VIAL IV SCH ×2 (02:33→12:58)
[2019-08-10] MEDS: ALBUTEROL/IPRATROPIUM 3 ML NEB RESP TX SCH ×6 (03:16→23:57)
[2019-08-10 05:41] LABS: ABG Base Excess -6.7 MMOL/L (-2.5-2.5); ABG Oxygen Saturation 99.1 % (95-100); ABG PH 7.288 (7.35-7.45); ABG TCO2 17.8 MMOL/L (23-27); Allen Test Positive; Pt O2 Delivery Device Ventilator
[2019-08-10] MEDS: BUDESONIDE 0.5 MG/2 ML NEB RESP TX SCH ×2 (07:06→20:07)
[2019-08-10] MEDS: INSULIN GLARGINE 100 UNIT/ML SUBCUT SCH (08:18)
[2019-08-10] MEDS: PANTOPRAZOLE 40 MG VIAL IV SCH ×2 (08:18→20:29)
[2019-08-10] MEDS: risperiDONE 1 MG TABLET PO SCH (12:55)
[2019-08-10] MEDS: DULoxetine 30 MG CAPSULE PO SCH (12:55)
[2019-08-10 13:24] LABS: Allen Test Positive; Pt O2 Delivery Device Ventilator
[2019-08-10 13:25] LABS: ABG Base Excess -2.9 MMOL/L (-2.5-2.5); ABG Oxygen Saturation 98.9 % (95-100); ABG PCO2 46.4 MM HG (35-48); ABG PH 7.313 (7.35-7.45); ABG TCO2 21.4 MMOL/L (23-27)
[2019-08-10 14:51] LABS: Basophils # 0.1 10*3/uL (0.0-0.2); Basophils % 0.9 % (0.0-0.8); Eosinophils % 0.3 % (0.00-10.9); Hematocrit 31.9 VOL% (42.0-52.0); Hemoglobin 10.5 GM/DL (14.0-18.0); Immature Granulocytes % 0.7 %; Immature Granulocytes Absolute 0.06 #; Lymphocytes # 0.1 10*3/uL (1.4-4.0); Lymphocytes % 1.6 % (21.2-54.2); Mean Corpuscular HGB Conc 32.9 GM/DL (32-36); Mean Corpuscular Volume 90.6 FL (87-102); Mean Platelet Volume 11.1 FL (9.6-12.0); Monocytes % 1.6 % (1.7-12.7); Neutrophils % 94.9 % (38.7-73.9); Platelet Count 155 T/CUMM (130-400); Red Blood Count 3.52 MC/CUMM (3.8-5.5); Red Cell Distribution Width 14.6 % (9.3-17.3)
[2019-08-10 15:19] LABS: Albumin 1.4 G/DL (3.4-5.0); Bilirubin,Total 1.2 MG/DL (0.2-1.0); Calcium 7.5 MG/DL (8.5-10.1); Osmolality,Calculated 280.5 MOS/KG (273-304)
[2019-08-10] MEDS: INSULIN REGULAR IV SCH (16:31)
[2019-08-10] MEDS: [UNRECOGNIZED DRUG - OTHER] IV SCH (16:31)
[2019-08-10] MEDS: DEXTROSE IV SCH (16:31)
[2019-08-10] MEDS: MULTIVITAMIN IV SCH (16:31)
[2019-08-10 17:15] LABS: Band Neutrophils 28 % (0-10); Lymphocytes 2 % (20-55); Metamyelocytes 4 %; Platelet Estimate Normal; Segmented Neutrophils 64 % (50-85); Total Cells Counted 100; Toxic Granulation 2+
[2019-08-10] MEDS: METOCLOPRAMIDE 10 MG/2 ML VIAL IV SCH (17:47)
[2019-08-10] MEDS: fentaNYL INJ 1,250 MCG in SODIUM CHLORIDE 0.9% 225 ML IV PRN (20:30)
[2019-08-10] MEDS: traZODone 50 MG TABLET PO SCH (20:31)
[2019-08-10] MEDS: MINERAL OIL/PETROLATUM OPH OINT 3.5 GM TUBE BOTH EYES SCH (20:33)
[2019-08-11] MEDS: METOPROLOL TARTRATE 5 MG/5 ML VIAL IV SCH ×4 (00:08→17:04)
[2019-08-11] MEDS: METOCLOPRAMIDE 10 MG/2 ML VIAL IV SCH ×3 (00:08→12:16)
[2019-08-11] MEDS: methylPREDNISolone SOD SUC 40 MG/1 ML VIAL IV SCH ×2 (01:34→12:32)
[2019-08-11] MEDS: INSULIN LISPRO 100 UNIT/ML SUBCUT SCH ×5 (04:02→20:09)
[2019-08-11] MEDS: ALBUTEROL/IPRATROPIUM 3 ML NEB RESP TX SCH ×6 (04:09→23:10)
[2019-08-11 04:21] LABS: ABG Base Excess -5.4 MMOL/L (-2.5-2.5); ABG Oxygen Saturation 99.1 % (95-100); ABG PCO2 42.8 MM HG (35-48); ABG PH 7.297 (7.35-7.45); Pt O2 Delivery Device Ventilator
[2019-08-11 07:01] LABS: Basophils # 0.1 10*3/uL (0.0-0.2); Basophils % 0.8 % (0.0-0.8); Eosinophils % 0.2 % (0.00-10.9); Hematocrit 29.6 VOL% (42.0-52.0); Hemoglobin 9.8 GM/DL (14.0-18.0); Immature Granulocytes % 0.4 %; Immature Granulocytes Absolute 0.04 #; Lymphocytes # 0.2 10*3/uL (1.4-4.0); Mean Corpuscular HGB Conc 33.1 GM/DL (32-36); Mean Corpuscular Volume 91.1 FL (87-102); Mean Platelet Volume 11.7 FL (9.6-12.0); Monocytes % 1.5 % (1.7-12.7); Neutrophils % 95.1 % (38.7-73.9); Platelet Count 161 T/CUMM (130-400); Red Blood Count 3.25 MC/CUMM (3.8-5.5); Red Cell Distribution Width 14.7 % (9.3-17.3); White Blood Count 9.7 T/CUMM (4-12)
[2019-08-11] MEDS: BUDESONIDE 0.5 MG/2 ML NEB RESP TX SCH ×2 (07:16→19:40)
[2019-08-11 07:39] LABS: Albumin 1.3 G/DL (3.4-5.0); Osmolality,Calculated 285.9 MOS/KG (273-304); Total Protein 5.9 G/DL (6.4-8.3)
[2019-08-11 07:51] LABS: Band Neutrophils 50 % (0-10); Lymphocytes 3 % (20-55); Metamyelocytes 1 %; Platelet Estimate Normal; Segmented Neutrophils 43 % (50-85); Total Cells Counted 100
[2019-08-11 07:52] LABS: Anisocytosis Slight; Burr Cells Few
[2019-08-11] MEDS: risperiDONE 1 MG TABLET PO SCH (08:30)
[2019-08-11] MEDS: DULoxetine 30 MG CAPSULE PO SCH (08:30)
[2019-08-11] MEDS: INSULIN GLARGINE 100 UNIT/ML SUBCUT SCH (08:31)
[2019-08-11] MEDS: PANTOPRAZOLE 40 MG VIAL IV SCH ×2 (08:32→20:08)
[2019-08-11] MEDS: PIPERACILLIN/TAZOBACTAM 3,375 MG in SODIUM CHLORIDE 0.9% 100 ML IV SCH (14:16)
[2019-08-11] MEDS: fentaNYL INJ 1,250 MCG in SODIUM CHLORIDE 0.9% 225 ML IV PRN (16:16)
[2019-08-11] MEDS: MULTIVITAMIN IV SCH (16:19)
[2019-08-11] MEDS: DEXTROSE IV SCH (16:19)
[2019-08-11] MEDS: [UNRECOGNIZED DRUG - OTHER] IV SCH (16:19)
[2019-08-11] MEDS: INSULIN REGULAR IV SCH (16:19)
[2019-08-11] MEDS ORDERED: CALCIUM GLUCONATE 2,000 MG in SODIUM CHLORIDE 0.9% 100 ML IV ONE (17:21)
[2019-08-11] MEDS: ALBUMIN 25% 25 GM in PREMIX 1 EACH IV SCH (17:49)
[2019-08-11] MEDS: traZODone 50 MG TABLET PO SCH (20:08)
[2019-08-11] MEDS: MINERAL OIL/PETROLATUM OPH OINT 3.5 GM TUBE BOTH EYES SCH (20:08)
[2019-08-12] MEDS: INSULIN LISPRO 100 UNIT/ML SUBCUT SCH ×7 (00:38→23:47)
[2019-08-12] MEDS: METOPROLOL TARTRATE 5 MG/5 ML VIAL IV SCH ×5 (00:47→23:49)
[2019-08-12] MEDS: methylPREDNISolone SOD SUC 40 MG/1 ML VIAL IV SCH ×2 (00:47→13:56)
[2019-08-12] MEDS: PIPERACILLIN/TAZOBACTAM 3,375 MG in SODIUM CHLORIDE 0.9% 100 ML IV SCH ×2 (01:00→15:19)
[2019-08-12] MEDS: ALBUMIN 25% 25 GM in PREMIX 1 EACH IV SCH ×2 (01:07→14:24)
[2019-08-12] MEDS: ALBUTEROL/IPRATROPIUM 3 ML NEB RESP TX SCH ×6 (02:45→22:52)
[2019-08-12 03:39] LABS: ABG Base Excess -9.4 MMOL/L (-2.5-2.5); ABG HCO3 16.9 MMOL/L (20-26); ABG Oxygen Saturation 99.4 % (95-100); ABG PCO2 44.5 MM HG (35-48); ABG PH 7.216 (7.35-7.45); Pt O2 Delivery Device Ventilator
[2019-08-12 03:50] LABS: Basophils # 0.1 10*3/uL (0.0-0.2); Basophils % 1.1 % (0.0-0.8); Eosinophils % 0.4 % (0.00-10.9); Hematocrit 27.4 VOL% (42.0-52.0); Immature Granulocytes % 0.4 %; Immature Granulocytes Absolute 0.03 #; Lymphocytes # 0.1 10*3/uL (1.4-4.0); Lymphocytes % 1.7 % (21.2-54.2); Mean Corpuscular HGB Conc 32.8 GM/DL (32-36); Mean Corpuscular Volume 92.9 FL (87-102); Mean Platelet Volume 11.5 FL (9.6-12.0); Monocytes % 1.7 % (1.7-12.7); NRBC # 0.02 10*3/uL; Neutrophils % 94.7 % (38.7-73.9); Platelet Count 140 T/CUMM (130-400); Red Blood Count 2.95 MC/CUMM (3.8-5.5); Red Cell Distribution Width 14.5 % (9.3-17.3); White Blood Count 7.6 T/CUMM (4-12)
[2019-08-12 04:08] LABS: Bilirubin,Total 1.4 MG/DL (0.2-1.0); Calcium 6.9 MG/DL (8.5-10.1); Osmolality,Calculated 293.9 MOS/KG (273-304); Total Protein 6.1 G/DL (6.4-8.3)
[2019-08-12 04:13] LABS: Band Neutrophils 21 % (0-10); Lymphocytes 3 % (20-55); Nucleated Red Blood Cells 1 (0-5); Platelet Estimate Normal; Segmented Neutrophils 75 % (50-85); Total Cells Counted 100
[2019-08-12 04:15] LABS: Anisocytosis Slight; Microcytosis 1+; Polychromasia Slight; Spherocytes Few
[2019-08-12] MEDS: BUDESONIDE 0.5 MG/2 ML NEB RESP TX SCH ×2 (08:05→19:41)
[2019-08-12] MEDS: fentaNYL INJ 1,250 MCG in SODIUM CHLORIDE 0.9% 225 ML IV PRN ×2 (08:32→19:11)
[2019-08-12] MEDS: INSULIN GLARGINE 100 UNIT/ML SUBCUT SCH (08:41)
[2019-08-12] MEDS: PANTOPRAZOLE 40 MG VIAL IV SCH ×2 (08:55→20:09)
[2019-08-12] MEDS ORDERED: SEVOFLURANE 1 UNIT/15 MINUTE INH ONE (12:20)
[2019-08-12] MEDS ORDERED: SODIUM BICARBONATE 50 MEQ/50 ML VIAL IV ONE (12:20)
[2019-08-12] MEDS ORDERED: ePHEDrine 50 MG/ML AMP ONE (12:20)
[2019-08-12] MEDS ORDERED: PHENYLEPHRINE 1 MG/10 ML SYRINGE IV ONE (12:20)
[2019-08-12] MEDS ORDERED: MIDAZOLAM 2 MG/2 ML VIAL ONE (12:20)
[2019-08-12] MEDS ORDERED: ROCURONIUM 100 MG/10 ML VIAL IV ONE (12:21)
[2019-08-12] MEDS ORDERED: ALBUMIN 25% 25 GM in PREMIX 1 EACH IV SCH (14:00)
[2019-08-12] MEDS: DULoxetine 30 MG CAPSULE PO SCH (16:16)
[2019-08-12] MEDS: risperiDONE 1 MG TABLET PO SCH (16:17)
[2019-08-12] MEDS: DEXTROSE IV SCH (17:05)
[2019-08-12] MEDS: INSULIN REGULAR IV SCH (17:05)
[2019-08-12] MEDS: MULTIVITAMIN IV SCH (17:05)
[2019-08-12] MEDS: [UNRECOGNIZED DRUG - OTHER] IV SCH (17:05)
[2019-08-12] MEDS: MENTHOL/ZINC OXIDE OINT 71 GM JAR TOP SCH ×2 (17:06→20:10)
[2019-08-12] MEDS: traZODone 50 MG TABLET PO SCH (20:09)
[2019-08-12] MEDS: MINERAL OIL/PETROLATUM OPH OINT 3.5 GM TUBE BOTH EYES SCH (20:11)
[2019-08-13] MEDS: PIPERACILLIN/TAZOBACTAM 3,375 MG in SODIUM CHLORIDE 0.9% 100 ML IV SCH ×2 (01:58→13:12)
[2019-08-13] MEDS: methylPREDNISolone SOD SUC 40 MG/1 ML VIAL IV SCH ×2 (01:58→12:42)
[2019-08-13] MEDS: ALBUTEROL/IPRATROPIUM 3 ML NEB RESP TX SCH ×6 (03:04→22:49)
[2019-08-13 03:09] LABS: ABG Base Excess -4.6 MMOL/L (-2.5-2.5); ABG HCO3 20.6 MMOL/L (20-26); ABG Oxygen Saturation 99.2 % (95-100); ABG PCO2 46.7 MM HG (35-48); ABG PH 7.283 (7.35-7.45); ABG TCO2 20.5 MMOL/L (23-27); Allen Test Positive; Pt O2 Delivery Device Ventilator
[2019-08-13] MEDS: INSULIN LISPRO 100 UNIT/ML SUBCUT SCH ×5 (03:21→20:43)
[2019-08-13 03:33] LABS: Basophils # 0.1 10*3/uL (0.0-0.2); Basophils % 0.7 % (0.0-0.8); Eosinophils # 0.1 10*3/uL (0.0-0.87); Eosinophils % 1.6 % (0.00-10.9); Hematocrit 25.2 VOL% (42.0-52.0); Hemoglobin 8.3 GM/DL (14.0-18.0); Immature Granulocytes % 0.6 %; Immature Granulocytes Absolute 0.04 #; Lymphocytes # 0.1 10*3/uL (1.4-4.0); Lymphocytes % 1.4 % (21.2-54.2); Mean Corpuscular HGB Conc 32.9 GM/DL (32-36); Mean Corpuscular Volume 91.3 FL (87-102); Mean Platelet Volume 11.7 FL (9.6-12.0); Monocytes % 1.7 % (1.7-12.7); NRBC # 0.04 10*3/uL; Platelet Count 128 T/CUMM (130-400); Red Blood Count 2.76 MC/CUMM (3.8-5.5); Red Cell Distribution Width 14.7 % (9.3-17.3)
[2019-08-13 03:55] LABS: Albumin 1.9 G/DL (3.4-5.0); Bilirubin,Total 1.5 MG/DL (0.2-1.0); Calcium 7.2 MG/DL (8.5-10.1); Osmolality,Calculated 282.7 MOS/KG (273-304); Total Protein 5.7 G/DL (6.4-8.3)
[2019-08-13 04:09] LABS: Anisocytosis 1+; Band Neutrophils 18 % (0-10); Eosinophils 3 % (0-10); Hypochromasia 1+; Lymphocytes 9 % (20-55); Metamyelocytes 2 %; Microcytosis 1+; Platelet Estimate Decreased; Segmented Neutrophils 59 % (50-85); Smudge Cells Few; Total Cells Counted 100; Toxic Granulation 1+
[2019-08-13] MEDS: METOPROLOL TARTRATE 5 MG/5 ML VIAL IV SCH ×3 (05:37→17:42)
[2019-08-13] MEDS: fentaNYL INJ 1,250 MCG in SODIUM CHLORIDE 0.9% 225 ML IV PRN ×2 (05:41→17:31)
[2019-08-13] MEDS: BUDESONIDE 0.5 MG/2 ML NEB RESP TX SCH ×2 (07:36→19:08)
[2019-08-13] MEDS: INSULIN GLARGINE 100 UNIT/ML SUBCUT SCH (09:11)
[2019-08-13] MEDS: PANTOPRAZOLE 40 MG VIAL IV SCH ×2 (09:11→20:22)
[2019-08-13] MEDS: risperiDONE 1 MG TABLET PO SCH (09:12)
[2019-08-13] MEDS: MENTHOL/ZINC OXIDE OINT 71 GM JAR TOP SCH ×2 (09:12→20:22)
[2019-08-13] MEDS: DULoxetine 30 MG CAPSULE PO SCH (09:12)
[2019-08-13] MEDS: HYDROmorphone 2 MG/1 ML VIAL IV PRN ×4 (10:52→20:37)
[2019-08-13] MEDS: [UNRECOGNIZED DRUG - OTHER] IV SCH (17:33)
[2019-08-13] MEDS: MULTIVITAMIN IV SCH (17:33)
[2019-08-13] MEDS: INSULIN REGULAR IV SCH (17:33)
[2019-08-13] MEDS: DEXTROSE IV SCH (17:33)
[2019-08-13] MEDS: MINERAL OIL/PETROLATUM OPH OINT 3.5 GM TUBE BOTH EYES SCH (20:22)
[2019-08-13] MEDS: traZODone 50 MG TABLET PO SCH (20:22)
[2019-08-14] MEDS: METOPROLOL TARTRATE 5 MG/5 ML VIAL IV SCH ×4 (00:04→17:18)
[2019-08-14] MEDS: INSULIN LISPRO 100 UNIT/ML SUBCUT SCH ×6 (00:04→20:59)
[2019-08-14] MEDS: PIPERACILLIN/TAZOBACTAM 3,375 MG in SODIUM CHLORIDE 0.9% 100 ML IV SCH ×2 (01:48→14:10)
[2019-08-14] MEDS: methylPREDNISolone SOD SUC 40 MG/1 ML VIAL IV SCH ×2 (01:48→12:44)
[2019-08-14] MEDS: ALBUTEROL/IPRATROPIUM 3 ML NEB RESP TX SCH ×6 (02:35→23:30)
[2019-08-14 03:41] LABS: ABG Base Excess -5.4 MMOL/L (-2.5-2.5); ABG PCO2 46.7 MM HG (35-48); ABG PH 7.272 (7.35-7.45); ABG TCO2 19.8 MMOL/L (23-27); Allen Test Positive; Pt O2 Delivery Device Ventilator
[2019-08-14] MEDS: fentaNYL INJ 1,250 MCG in SODIUM CHLORIDE 0.9% 225 ML IV PRN ×2 (05:00→13:47)
[2019-08-14 06:05] LABS: Calcium 7.2 MG/DL (8.5-10.1); Osmolality,Calculated 283.7 MOS/KG (273-304)
[2019-08-14] MEDS: BUDESONIDE 0.5 MG/2 ML NEB RESP TX SCH ×2 (07:20→19:45)
[2019-08-14] MEDS: risperiDONE 1 MG TABLET PO SCH (08:52)
[2019-08-14] MEDS: DULoxetine 30 MG CAPSULE PO SCH (08:52)
[2019-08-14] MEDS: INSULIN GLARGINE 100 UNIT/ML SUBCUT SCH (08:53)
[2019-08-14] MEDS: PANTOPRAZOLE 40 MG VIAL IV SCH ×2 (08:53→21:53)
[2019-08-14] MEDS: MENTHOL/ZINC OXIDE OINT 71 GM JAR TOP SCH ×2 (08:55→21:53)
[2019-08-14] MEDS ORDERED: ROCURONIUM 100 MG/10 ML VIAL IV ONE (11:08)
[2019-08-14] MEDS ORDERED: MIDAZOLAM 2 MG/2 ML VIAL ONE (11:08)
[2019-08-14] MEDS ORDERED: PHENYLEPHRINE 1 MG/10 ML SYRINGE IV ONE (11:08)
[2019-08-14] MEDS: HYDROmorphone 2 MG/1 ML VIAL IV PRN (12:55)
[2019-08-14] MEDS: DOPamine 800 MG/250 ML PREMIX IV PRN (15:50)
[2019-08-14] MEDS: [UNRECOGNIZED DRUG - OTHER] IV SCH (17:18)
[2019-08-14] MEDS: DEXTROSE IV SCH (17:18)
[2019-08-14] MEDS: MULTIVITAMIN IV SCH (17:18)
[2019-08-14] MEDS: INSULIN REGULAR IV SCH (17:18)
[2019-08-14] MEDS: traZODone 50 MG TABLET PO SCH (21:53)
[2019-08-14] MEDS: MINERAL OIL/PETROLATUM OPH OINT 3.5 GM TUBE BOTH EYES SCH (21:53)
[2019-08-15] MEDS: INSULIN LISPRO 100 UNIT/ML SUBCUT SCH ×6 (01:14→21:06)
[2019-08-15] MEDS: methylPREDNISolone SOD SUC 40 MG/1 ML VIAL IV SCH ×2 (01:28→13:00)
[2019-08-15] MEDS: METOPROLOL TARTRATE 5 MG/5 ML VIAL IV SCH ×4 (01:28→17:09)
[2019-08-15] MEDS: PIPERACILLIN/TAZOBACTAM 3,375 MG in SODIUM CHLORIDE 0.9% 100 ML IV SCH (01:29)
[2019-08-15] MEDS: ALBUTEROL/IPRATROPIUM 3 ML NEB RESP TX SCH ×5 (03:20→19:25)
[2019-08-15 03:38] LABS: ABG Base Excess -5.1 MMOL/L (-2.5-2.5); ABG Oxygen Saturation 98.9 % (95-100); ABG PH 7.306 (7.35-7.45); ABG PO2 189.2 MM HG (80-95); ABG TCO2 22.3 MMOL/L (23-27); Allen Test Positive; Pt O2 Delivery Device Ventilator
[2019-08-15 05:03] LABS: Basophils % 0.3 % (0.0-0.8); Eosinophils # 0.1 10*3/uL (0.0-0.87); Eosinophils % 0.7 % (0.00-10.9); Hematocrit 25.2 VOL% (42.0-52.0); Hemoglobin 8.4 GM/DL (14.0-18.0); Immature Granulocytes % 1.4 %; Immature Granulocytes Absolute 0.15 #; Lymphocytes # 0.1 10*3/uL (1.4-4.0); Lymphocytes % 1.3 % (21.2-54.2); Mean Corpuscular HGB Conc 33.3 GM/DL (32-36); Mean Corpuscular Volume 90.6 FL (87-102); Mean Platelet Volume 12.2 FL (9.6-12.0); Monocytes % 1.4 % (1.7-12.7); NRBC # 0.04 10*3/uL; Neutrophils % 94.9 % (38.7-73.9); Platelet Count 63 T/CUMM (130-400); Red Blood Count 2.78 MC/CUMM (3.8-5.5); Red Cell Distribution Width 15.2 % (9.3-17.3); White Blood Count 10.5 T/CUMM (4-12)
[2019-08-15 05:22] LABS: Band Neutrophils 14 % (0-10); Eosinophils 1 % (0-10); Hypochromasia 1+; Lymphocytes 2 % (20-55); Myelocytes 1 %; Segmented Neutrophils 78 % (50-85); Total Cells Counted 100
[2019-08-15 05:23] LABS: Microcytosis 1+; Polychromasia Slight
[2019-08-15 05:24] LABS: Platelet Estimate Decreased
[2019-08-15 05:30] LABS: Albumin 1.3 G/DL (3.4-5.0); Bilirubin,Total 1.8 MG/DL (0.2-1.0); Calcium 7.5 MG/DL (8.5-10.1); Osmolality,Calculated 279.7 MOS/KG (273-304); Total Protein 5.8 G/DL (6.4-8.3)
[2019-08-15] MEDS: fentaNYL INJ 1,250 MCG in SODIUM CHLORIDE 0.9% 225 ML IV PRN ×3 (06:10→22:21)
[2019-08-15] MEDS: BUDESONIDE 0.5 MG/2 ML NEB RESP TX SCH ×2 (06:51→19:25)
[2019-08-15] MEDS: HYDROmorphone 2 MG/1 ML VIAL IV PRN ×3 (07:35→16:10)
[2019-08-15] MEDS: INSULIN GLARGINE 100 UNIT/ML SUBCUT SCH (09:13)
[2019-08-15] MEDS: PANTOPRAZOLE 40 MG VIAL IV SCH ×2 (09:13→21:07)
[2019-08-15] MEDS: risperiDONE 1 MG TABLET PO SCH (09:14)
[2019-08-15] MEDS: DULoxetine 30 MG CAPSULE PO SCH (09:14)
[2019-08-15] MEDS: MENTHOL/ZINC OXIDE OINT 71 GM JAR TOP SCH ×2 (09:50→21:07)
[2019-08-15] MEDS ORDERED: LEVOFLOXACIN INJ 750 MG in PREMIX 1 EACH IV ONE (10:30)
[2019-08-15] MEDS: LUBIPROSTONE 24 MCG CAPSULE PO SCH ×2 (11:03→21:07)
[2019-08-15] MEDS: DEXTROSE IV SCH (17:09)
[2019-08-15] MEDS: INSULIN REGULAR IV SCH (17:09)
[2019-08-15] MEDS: MULTIVITAMIN IV SCH (17:09)
[2019-08-15] MEDS: [UNRECOGNIZED DRUG - OTHER] IV SCH (17:09)
[2019-08-15] MEDS: traZODone 50 MG TABLET PO SCH (21:07)
[2019-08-15] MEDS: MINERAL OIL/PETROLATUM OPH OINT 3.5 GM TUBE BOTH EYES SCH (21:07)
[2019-08-16] MEDS: ALBUTEROL/IPRATROPIUM 3 ML NEB RESP TX SCH ×6 (00:13→19:05)
[2019-08-16] MEDS: INSULIN LISPRO 100 UNIT/ML SUBCUT SCH ×6 (00:33→21:11)
[2019-08-16] MEDS: METOPROLOL TARTRATE 5 MG/5 ML VIAL IV SCH ×4 (00:34→18:52)
[2019-08-16] MEDS: methylPREDNISolone SOD SUC 40 MG/1 ML VIAL IV SCH ×2 (00:34→14:14)
[2019-08-16 04:14] LABS: Basophils # 0.1 10*3/uL (0.0-0.2); Basophils % 0.8 % (0.0-0.8); Eosinophils # 0.1 10*3/uL (0.0-0.87); Eosinophils % 0.7 % (0.00-10.9); Hematocrit 26.1 VOL% (42.0-52.0); Hemoglobin 8.4 GM/DL (14.0-18.0); Immature Granulocytes Absolute 0.11 #; Lymphocytes # 0.2 10*3/uL (1.4-4.0); Lymphocytes % 1.6 % (21.2-54.2); Mean Corpuscular HGB Conc 32.2 GM/DL (32-36); Mean Corpuscular Volume 92.2 FL (87-102); Mean Platelet Volume 13.3 FL (9.6-12.0); Monocytes % 1.5 % (1.7-12.7); NRBC # 0.08 10*3/uL; Neutrophils % 94.4 % (38.7-73.9); Red Blood Count 2.83 MC/CUMM (3.8-5.5); Red Cell Distribution Width 15.4 % (9.3-17.3); White Blood Count 10.7 T/CUMM (4-12)
[2019-08-16 04:18] LABS: Platelet Count 50 T/CUMM (130-400)
[2019-08-16 04:29] LABS: Albumin 1.2 G/DL (3.4-5.0); Bilirubin,Total 1.6 MG/DL (0.2-1.0); Calcium 7.3 MG/DL (8.5-10.1); Osmolality,Calculated 288.9 MOS/KG (273-304)
[2019-08-16 04:34] LABS: Band Neutrophils 9 % (0-10); Eosinophils 2 % (0-10); Hypochromasia 1+; Lymphocytes 5 % (20-55); Microcytosis 1+; Platelet Estimate Decreased; Segmented Neutrophils 81 % (50-85); Total Cells Counted 100
[2019-08-16] MEDS: fentaNYL INJ 1,250 MCG in SODIUM CHLORIDE 0.9% 225 ML IV PRN ×2 (05:45→11:24)
[2019-08-16] MEDS: BUDESONIDE 0.5 MG/2 ML NEB RESP TX SCH ×2 (06:51→19:05)
[2019-08-16] MEDS: risperiDONE 1 MG TABLET PO SCH (08:43)
[2019-08-16] MEDS: LUBIPROSTONE 24 MCG CAPSULE PO SCH ×2 (08:44→21:17)
[2019-08-16] MEDS: DULoxetine 30 MG CAPSULE PO SCH (08:44)
[2019-08-16] MEDS: INSULIN GLARGINE 100 UNIT/ML SUBCUT SCH (08:45)
[2019-08-16] MEDS: PANTOPRAZOLE 40 MG VIAL IV SCH ×2 (08:46→21:17)
[2019-08-16] MEDS: MENTHOL/ZINC OXIDE OINT 71 GM JAR TOP SCH ×2 (08:59→21:17)
[2019-08-16] MEDS: DOPamine 800 MG/250 ML PREMIX IV PRN (13:01)
[2019-08-16] MEDS ORDERED: SEVOFLURANE 1 UNIT/15 MINUTE INH ONE (13:02)
[2019-08-16] MEDS ORDERED: PHENYLEPHRINE 10 MG/1 ML VIAL IV ONE (13:02)
[2019-08-16] MEDS ORDERED: MIDAZOLAM 2 MG/2 ML VIAL ONE (13:02)
[2019-08-16] MEDS ORDERED: ROCURONIUM 100 MG/10 ML VIAL IV ONE (13:02)
[2019-08-16] MEDS: DEXTROSE IV SCH (16:42)
[2019-08-16] MEDS: [UNRECOGNIZED DRUG - OTHER] IV SCH (16:42)
[2019-08-16] MEDS: MULTIVITAMIN IV SCH (16:42)
[2019-08-16] MEDS: INSULIN REGULAR IV SCH (16:42)
[2019-08-16] MEDS: MINERAL OIL/PETROLATUM OPH OINT 3.5 GM TUBE BOTH EYES SCH (21:17)
[2019-08-16] MEDS: traZODone 50 MG TABLET PO SCH (21:17)
[2019-08-17] MEDS: ALBUTEROL/IPRATROPIUM 3 ML NEB RESP TX SCH ×6 (00:05→20:14)
[2019-08-17] MEDS: INSULIN LISPRO 100 UNIT/ML SUBCUT SCH ×6 (01:08→20:41)
[2019-08-17] MEDS: METOPROLOL TARTRATE 5 MG/5 ML VIAL IV SCH ×4 (01:08→17:06)
[2019-08-17] MEDS: methylPREDNISolone SOD SUC 40 MG/1 ML VIAL IV SCH ×2 (02:34→12:57)
[2019-08-17] MEDS: fentaNYL INJ 1,250 MCG in SODIUM CHLORIDE 0.9% 225 ML IV PRN ×3 (03:43→20:42)
[2019-08-17 03:58] LABS: Allen Test Positive; Pt O2 Delivery Device Ventilator
[2019-08-17 04:01] LABS: ABG HCO3 17.8 MMOL/L (20-26); ABG Oxygen Saturation 99.2 % (95-100); ABG PCO2 46.2 MM HG (35-48); ABG PH 7.227 (7.35-7.45); ABG TCO2 18.4 MMOL/L (23-27)
[2019-08-17 05:00] LABS: Albumin 1.1 G/DL (3.4-5.0); Bilirubin,Total 1.5 MG/DL (0.2-1.0); Calcium 6.9 MG/DL (8.5-10.1); Osmolality,Calculated 281.9 MOS/KG (273-304); Total Protein 5.6 G/DL (6.4-8.3)
[2019-08-17 05:14] LABS: Basophils % 0.2 % (0.0-0.8); Eosinophils % 0.2 % (0.00-10.9); Hematocrit 24.3 VOL% (42.0-52.0); Hemoglobin 7.8 GM/DL (14.0-18.0); Immature Granulocytes % 1.3 %; Immature Granulocytes Absolute 0.17 #; Lymphocytes # 0.2 10*3/uL (1.4-4.0); Lymphocytes % 1.4 % (21.2-54.2); Mean Corpuscular HGB Conc 32.1 GM/DL (32-36); Mean Corpuscular Volume 92.4 FL (87-102); Mean Platelet Volume 12.8 FL (9.6-12.0); Monocytes % 1.6 % (1.7-12.7); Neutrophils % 95.3 % (38.7-73.9); Red Blood Count 2.63 MC/CUMM (3.8-5.5); Red Cell Distribution Width 15.9 % (9.3-17.3)
[2019-08-17 05:26] LABS: Platelet Count 36 T/CUMM (130-400)
[2019-08-17] MEDS ORDERED: SODIUM CHLORIDE 0.9% 1,000 ML IV PRN (06:06)
[2019-08-17 07:33] LABS: Band Neutrophils 17 % (0-10); Eosinophils 2 % (0-10); Hypochromasia 1+; Lymphocytes 3 % (20-55); Microcytosis 1+; Nucleated Red Blood Cells 1 (0-5); Platelet Estimate Decreased; Segmented Neutrophils 77 % (50-85); Total Cells Counted 100
[2019-08-17] MEDS: BUDESONIDE 0.5 MG/2 ML NEB RESP TX SCH ×2 (07:45→20:14)
[2019-08-17] MEDS: DULoxetine 30 MG CAPSULE PO SCH (09:28)
[2019-08-17] MEDS: PANTOPRAZOLE 40 MG VIAL IV SCH ×2 (09:28→20:43)
[2019-08-17] MEDS: MENTHOL/ZINC OXIDE OINT 71 GM JAR TOP SCH ×2 (09:29→20:42)
[2019-08-17] MEDS: INSULIN GLARGINE 100 UNIT/ML SUBCUT SCH (09:29)
[2019-08-17] MEDS: LUBIPROSTONE 24 MCG CAPSULE PO SCH ×2 (09:29→20:42)
[2019-08-17] MEDS: risperiDONE 1 MG TABLET PO SCH (09:29)
[2019-08-17] MEDS: LEVOFLOXACIN INJ 500 MG in PREMIX 1 EACH IV SCH (09:31)
[2019-08-17] MEDS ORDERED: EPINEPHrine 1 MG/10 ML SYRINGE IV ONE (11:15)
[2019-08-17] MEDS: INSULIN REGULAR IV SCH (16:52)
[2019-08-17] MEDS: DEXTROSE IV SCH (16:52)
[2019-08-17] MEDS: [UNRECOGNIZED DRUG - OTHER] IV SCH (16:52)
[2019-08-17] MEDS: MULTIVITAMIN IV SCH (16:52)
[2019-08-17] MEDS: traZODone 50 MG TABLET PO SCH (20:42)
[2019-08-17] MEDS: MINERAL OIL/PETROLATUM OPH OINT 3.5 GM TUBE BOTH EYES SCH (20:43)
[2019-08-17] MEDS: DOPamine 800 MG/250 ML PREMIX IV PRN (23:17)
[2019-08-18] MEDS: ALBUTEROL/IPRATROPIUM 3 ML NEB RESP TX SCH ×7 (00:21→22:40)
[2019-08-18] MEDS: METOPROLOL TARTRATE 5 MG/5 ML VIAL IV SCH ×4 (01:12→17:02)
[2019-08-18] MEDS: INSULIN LISPRO 100 UNIT/ML SUBCUT SCH ×6 (01:12→20:04)
[2019-08-18] MEDS: methylPREDNISolone SOD SUC 40 MG/1 ML VIAL IV SCH ×2 (02:45→14:31)
[2019-08-18 04:13] LABS: Basophils # 0.1 10*3/uL (0.0-0.2); Basophils % 0.5 % (0.0-0.8); Eosinophils # 0.1 10*3/uL (0.0-0.87); Eosinophils % 0.4 % (0.00-10.9); Hematocrit 21.4 VOL% (42.0-52.0); Hemoglobin 6.9 GM/DL (14.0-18.0); Immature Granulocytes % 2.3 %; Immature Granulocytes Absolute 0.34 #; Lymphocytes # 0.3 10*3/uL (1.4-4.0); Lymphocytes % 2.2 % (21.2-54.2); Mean Corpuscular HGB Conc 32.2 GM/DL (32-36); Mean Corpuscular Volume 93.4 FL (87-102); Mean Platelet Volume 12.3 FL (9.6-12.0); Monocytes % 2.3 % (1.7-12.7); NRBC # 0.14 10*3/uL; Neutrophils % 92.3 % (38.7-73.9); Red Blood Count 2.29 MC/CUMM (3.8-5.5); Red Cell Distribution Width 16.2 % (9.3-17.3); White Blood Count 14.7 T/CUMM (4-12)
[2019-08-18 04:16] LABS: Platelet Count 52 T/CUMM (130-400)
[2019-08-18 04:23] LABS: ABG Base Excess -12.4 MMOL/L (-2.5-2.5); ABG HCO3 14.6 MMOL/L (20-26); ABG Oxygen Saturation 99.1 % (95-100); ABG PCO2 42.4 MM HG (35-48); Allen Test Positive; Pt O2 Delivery Device Ventilator
[2019-08-18 04:28] LABS: ABG PH 7.169 (7.35-7.45)
[2019-08-18] MEDS ORDERED: SODIUM BICARBONATE 50 MEQ/50 ML VIAL IV ONE (04:32)
[2019-08-18 04:57] LABS: Band Neutrophils 13 % (0-10); Lymphocytes 2 % (20-55); Segmented Neutrophils 83 % (50-85); Total Cells Counted 100
[2019-08-18 04:58] LABS: Anisocytosis 1+; Hypochromasia 1+; Microcytosis 1+
[2019-08-18 04:59] LABS: Platelet Estimate Decreased
[2019-08-18] MEDS: fentaNYL INJ 1,250 MCG in SODIUM CHLORIDE 0.9% 225 ML IV PRN ×4 (05:03→21:28)
[2019-08-18 05:57] LABS: Albumin 1.1 G/DL (3.4-5.0); Bilirubin,Total 1.3 MG/DL (0.2-1.0); Calcium 6.3 MG/DL (8.5-10.1); Osmolality,Calculated 289.2 MOS/KG (273-304); Total Protein 4.9 G/DL (6.4-8.3)
[2019-08-18] MEDS: BUDESONIDE 0.5 MG/2 ML NEB RESP TX SCH ×2 (08:07→19:50)
[2019-08-18] MEDS: LUBIPROSTONE 24 MCG CAPSULE PO SCH ×2 (08:56→20:04)
[2019-08-18] MEDS: INSULIN GLARGINE 100 UNIT/ML SUBCUT SCH (08:56)
[2019-08-18] MEDS: PANTOPRAZOLE 40 MG VIAL IV SCH ×2 (08:56→20:04)
[2019-08-18] MEDS: risperiDONE 1 MG TABLET PO SCH (08:56)
[2019-08-18] MEDS: DULoxetine 30 MG CAPSULE PO SCH (09:03)
[2019-08-18] MEDS: MENTHOL/ZINC OXIDE OINT 71 GM JAR TOP SCH ×2 (09:04→20:05)
[2019-08-18] MEDS ORDERED: NOREPINEPHRINE 4 MG/4 ML VIAL IV ONE (14:55)
[2019-08-18] MEDS: INSULIN REGULAR IV SCH (16:38)
[2019-08-18] MEDS: DEXTROSE IV SCH (16:38)
[2019-08-18] MEDS: MULTIVITAMIN IV SCH (16:38)
[2019-08-18] MEDS: [UNRECOGNIZED DRUG - OTHER] IV SCH (16:38)
[2019-08-18] MEDS ORDERED: NOREPINEPHRINE 8 MG in SODIUM CHLORIDE 0.9% 242 ML IV PRN (16:40)
[2019-08-18] MEDS: DOPamine 800 MG/250 ML PREMIX IV PRN (17:12)
[2019-08-18] MEDS: traZODone 50 MG TABLET PO SCH (20:04)
[2019-08-18] MEDS: MINERAL OIL/PETROLATUM OPH OINT 3.5 GM TUBE BOTH EYES SCH (20:05)
[2019-08-19] MEDS: METOPROLOL TARTRATE 5 MG/5 ML VIAL IV SCH ×2 (00:05→05:26)
[2019-08-19] MEDS: INSULIN LISPRO 100 UNIT/ML SUBCUT SCH ×3 (00:42→08:05)
[2019-08-19] MEDS: DOPamine 800 MG/250 ML PREMIX IV PRN (00:42)
[2019-08-19] MEDS: methylPREDNISolone SOD SUC 40 MG/1 ML VIAL IV SCH (01:34)
[2019-08-19 02:22] LABS: Basophils # 0.1 10*3/uL (0.0-0.2); Basophils % 0.6 % (0.0-0.8); Eosinophils % 0.2 % (0.00-10.9); Hematocrit 22.7 VOL% (42.0-52.0); Hemoglobin 7.2 GM/DL (14.0-18.0); Immature Granulocytes Absolute 0.16 #; Lymphocytes # 0.5 10*3/uL (1.4-4.0); Lymphocytes % 2.9 % (21.2-54.2); Mean Corpuscular HGB Conc 31.7 GM/DL (32-36); Mean Corpuscular Volume 93.4 FL (87-102); Mean Platelet Volume 12.7 FL (9.6-12.0); Monocytes % 2.4 % (1.7-12.7); NRBC # 0.11 10*3/uL; Neutrophils % 92.9 % (38.7-73.9); Red Blood Count 2.43 MC/CUMM (3.8-5.5); Red Cell Distribution Width 16.7 % (9.3-17.3); White Blood Count 16.1 T/CUMM (4-12)
[2019-08-19 02:30] LABS: Platelet Count 33 T/CUMM (130-400)
[2019-08-19] MEDS: ALBUTEROL/IPRATROPIUM 3 ML NEB RESP TX SCH ×2 (02:40→07:05)
[2019-08-19 02:42] LABS: Band Neutrophils 9 % (0-10); Lymphocytes 2 % (20-55); Metamyelocytes 1 %; Platelet Estimate Decreased; Segmented Neutrophils 88 % (50-85); Total Cells Counted 100
[2019-08-19 02:43] LABS: Anisocytosis 1+; Microcytosis Slight; Polychromasia Slight
[2019-08-19 02:47] LABS: Albumin 1.1 G/DL (3.4-5.0); Bilirubin,Total 1.4 MG/DL (0.2-1.0); Calcium 6.5 MG/DL (8.5-10.1); Osmolality,Calculated 289.9 MOS/KG (273-304); Total Protein 5.8 G/DL (6.4-8.3)
[2019-08-19 02:49] LABS: Prealbumin 5.5 MG/DL (20-40)
[2019-08-19] MEDS ORDERED: SODIUM CHLORIDE 0.9% 1,000 ML IV PRN (02:55)
[2019-08-19 04:12] LABS: ABG Base Excess -14.9 MMOL/L (-2.5-2.5); ABG HCO3 12.8 MMOL/L (20-26); ABG Oxygen Saturation 98.7 % (95-100); ABG PCO2 42.5 MM HG (35-48); ABG TCO2 13.4 MMOL/L (23-27)
[2019-08-19 04:15] LABS: ABG PH 7.116 (7.35-7.45)
[2019-08-19] MEDS ORDERED: SODIUM BICARBONATE 50 MEQ/50 ML VIAL IV ONE (04:25)
[2019-08-19] MEDS: fentaNYL INJ 1,250 MCG in SODIUM CHLORIDE 0.9% 225 ML IV PRN (05:25)
[2019-08-19] MEDS: BUDESONIDE 0.5 MG/2 ML NEB RESP TX SCH (07:05)
[2019-08-19] MEDS: INSULIN GLARGINE 100 UNIT/ML SUBCUT SCH (08:58)
[2019-08-19] MEDS: DULoxetine 30 MG CAPSULE PO SCH (08:58)
[2019-08-19] MEDS: LUBIPROSTONE 24 MCG CAPSULE PO SCH (08:58)
[2019-08-19] MEDS: MENTHOL/ZINC OXIDE OINT 71 GM JAR TOP SCH (08:59)
[2019-08-19] MEDS: PANTOPRAZOLE 40 MG VIAL IV SCH (09:03)
[2019-08-19] MEDS: HYDROmorphone 2 MG/1 ML VIAL IV PRN (09:49)
[2019-08-19] MEDS ORDERED: HYDROmorphone 2 MG/1 ML VIAL IV ONE (10:15)
[2019-08-19] MEDS ORDERED: MORPHINE 4 MG/1 ML VIAL ONE (10:31)
[2019-08-19] MEDS ORDERED: LORazepam 2 MG/1 ML VIAL IV PRN (10:33)
[2019-08-19] MEDS ORDERED: LORazepam 2 MG/1 ML VIAL ONE (10:33)
[2019-08-19] MEDS ORDERED: MORPHINE 4 MG/1 ML VIAL IV ONE (10:40)
[2019-08-19 10:41] VITALS: BP 85/39
[2019-08-19] MEDS: LEVOFLOXACIN INJ 500 MG in PREMIX 1 EACH IV SCH (10:42)
== END 2019-08-19 10:52 | disposition expired | DRG 853 ==
LOC: N.ICU 13:38 → SUATTDRO 13:38
PROVIDERS: ADMIT Internal Medicine; ATTEND Internal Medicine